=== PATIENT | male | born 1935 | race Caucasian/White ===

== ENCOUNTER → 2019-07-29 13:55 | Outpatient (ROUT) | payer MEDICARE, SELFPAY ==
[2019-07-29 14:02] LABS: Add Manual Diff / Slide Review NO; Basophils Absolute Auto 0 /uL (0-100); Basophils Percent Auto 0.4 % (0-2); Eosinophils Absolute Auto 100 /uL (0-450); Eosinophils Percent Auto 0.7 % (2-4); Hematocrit 42.1 % (41-53); Hemoglobin 14.4 g/dL (13.5-17.5); Lymphocytes Absolute Auto 2700 /uL (1100-4500); Lymphocytes Percent Auto 27.1 % (25-40); Mean Corpuscular HGB Conc 34.3 % (30-36); Mean Corpuscular Volume 93.5 fL (80-100); Monocytes Absolute Auto 800 /uL (0-900); Monocytes Percent Auto 8.1 % (3-14); Neutrophils Absolute Auto 6300 /uL (1500-7000); Neutrophils Percent Auto 63.7 % (50-75); Platelet Count 246 X10^3/uL (150-400); Red Blood Cell Count 4.51 X10^6/uL (4.5-5.9); Red Cell Distribution Width 13.3 % (11.6-14.8); White Blood Cell Count 9.8 X10^3/uL (4.5-11.0)
[2019-07-29 14:09] LABS: Aspartate Aminotransferase 36 IU/L (17-59); BUN Creatinine Ratio 25.7 (6-22); Blood Urea Nitrogen 18 mg/dL (9-20); Calcium 9.8 mg/dL (8.4-10.2); Carbon Dioxide 29 mmol/L (22-32); Chloride 104 mmol/L (98-107); Cholesterol 179 mg/dL (140-199); Estimated Glomerular Filt Rate > 60.0 mL/min (>60); Glucose 91 mg/dL (80-110); HDL Cholesterol 50 mg/dL (40-60); HEMOLYSIS < 15 (0-50); LDL Cholesterol Calculated 113 mg/dL (<100); Potassium 4.3 mmol/L (3.4-5.1); Sodium 142 mmol/L (137-145); Triglycerides 80 mg/dL (35-150)
== END ==
PROVIDERS: Family Provider Internal Medicine; PCP Internal Medicine; Visit Provider Internal Medicine
DX: E78.2 Mixed hyperlipidemia (principal); I48.91 Unspecified atrial fibrillation
CPT/HCPCS: 80048; 80061; 84450; 85025

== ENCOUNTER 2019-12-20 13:01 | Emergency (ER) | payer MEDICARE, SELFPAY ==
--- NOTE | 2019-12-20 13:06 | DI.RAD.S_ITS ---
PROCEDURE: XR HAND LT MIN 3V INDICATIONS: crush type trauma TECHNIQUE: 3 views of the hand(s) acquired. COMPARISON: None. FINDINGS: Bones: No acute fractures or dislocations. Background multilevel degenerative changes of the left hand involving the interphalangeal joints and carpometacarpal joints. Findings are most severe in the distal interphalangeal joints as well as the first carpometacarpal joint. Carpal bones are normally aligned. No suspicious bony lesions. Soft tissues: No suspicious soft tissue calcifications. IMPRESSION: Left hand without acute fracture or dislocation. Multilevel degenerative changes of the left hand. If there is persistent clinical concern for occult fracture given adequate mechanism of injury, consider repeat imaging in 10-14 days. Dictated by: Horace Smalls M.D. on 12/20/2019 at 13:31 Approved by: Horace Smalls M.D. on 12/20/2019 at 13:38
[2019-12-20 13:08] VITALS: BP 180/88; PULSE 52; RESP 16; TEMP 36.8; O2SAT 99; BMI 21.9
[2019-12-20 14:00] VITALS: BP 151/74; PULSE 52; RESP 17; O2SAT 100
[2019-12-20 15:00] VITALS: BP 153/71; PULSE 51; RESP 15; O2SAT 100
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
[2019-12-20] MEDS: IBUPROFEN 400 MG TABLET PO (15:53)
[2019-12-20] MEDS: ACETAMINOPHEN 325 MG TABLET PO (15:53)
[2019-12-20 15:59] VITALS: BP 165/79; PULSE 53; RESP 16; O2SAT 100
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
== END 2019-12-20 16:14 | disposition home or self-care (01) ==
PROVIDERS: Emergency Provider Emergency Medicine; Family Provider Internal Medicine; PCP Internal Medicine
DX: S60.222A Contusion of left hand, initial encounter (principal); W23.0XXA Caught, crushed, jammed, or pinched between moving objects, initial encounter
CPT/HCPCS: 73130; 99283; 99284

== ENCOUNTER → 2020-05-31 11:51 | Outpatient (CLI) | payer MEDICARE, SELFPAY ==
[2020-05-31 13:43] LABS: Alanine Aminotransferase 19 IU/L (<50); Aspartate Aminotransferase 31 IU/L (17-59)
[2020-05-31 14:02] LABS: Free T4, Direct Thyroxine 1.48 ng/dL (0.78-2.19)
[2020-05-31 14:16] LABS: Thyroid Stimulating Hormone 1.72 uIU/mL (0.47-4.68)
== END ==
PROVIDERS: Family Provider Internal Medicine; PCP Internal Medicine; Referring Provider Nurse Practitioner; Visit Provider Nurse Practitioner
DX: I48.19 Other persistent atrial fibrillation (principal)
CPT/HCPCS: 36415; 84439; 84443; 84450; 84460

== ENCOUNTER 2020-07-10 19:09 | Emergency (ER) | payer MEDICARE, SELFPAY ==
--- NOTE | 2020-07-10 19:14 | DI.CT.S_ITS ---
PROCEDURE: CT HEAD/BRAIN WO CON COMPARISON: Located Within [facility], CT, HEAD WITHOUT CONTRAST, 10/24/2016, 15:14. INDICATIONS: head inj on thinners FINDINGS: BRAIN: No hemorrhage, acute infarction, mass, or midline shift. Subcortical and periventricular white matter hypodensities are consistent with microvascular ischemic disease. BRAINSTEM: No hemorrhage, acute infarction, or mass. VENTRICLES: Ventricular size is normal. The subarachnoid cisterns and extra-axial CSF spaces are normal. EXTRAAXIAL: No extra-axial fluid or blood. ORBITS: The orbits and retrobulbar are soft tissues are normal. SOFT TISSUES: Normal. VASCULATURE: Intracranial vasculature has mild atherosclerotic calcifications. BONES: No fracture or focal osseous abnormality. SINUSES/MASTOIDS: The paranasal sinuses are well aerated. The mastoid air cells are well aerated. IMPRESSION: 1. No acute intracranial abnormality. 2. Atrophy and microvascular ischemic disease. Dictated by: Jordon Vargas M.D. on 07/10/2020 at 19:52 Approved by: Jordon Vargas M.D. on 07/10/2020 at 19:55
--- NOTE | 2020-07-10 19:15 | DI.CT.S_ITS ---
PROCEDURE: CT CERVICAL SPINE WO CON INDICATIONS: fall on thinners TECHNIQUE: Noncontrast 3 mm thick sections acquired from the skull base to the T4 level. Sagittal and coronal reformats were then constructed. For radiation dose reduction, the following was used: automated exposure control, adjustment of mA and/or kV according to patient size. COMPARISON: None. FINDINGS: Alignment is maintained. There is no evidence of traumatic fracture or spondylolisthesis. Lateral masses are intact. Dens appears normal. There are multilevel degenerative changes with disc disease and disc osteophytes. Disc disease is most severe at C4-5 through T1-2. The visualized soft tissues demonstrate no soft tissue hematoma, pathologic adenopathy or mass lesion. The lung apices demonstrate no focal contusion or pneumothorax. Limited evaluation of the brain parenchyma is normal. IMPRESSION: 1. No acute abnormality of the cervical spine. 2. Multilevel degenerative changes of the cervical spine. Dictated by: Jordon Vargas M.D. on 07/10/2020 at 19:55 Approved by: Jordon Vargas M.D. on 07/10/2020 at 19:58
[2020-07-10 19:19] VITALS: BP 187/82; PULSE 58; RESP 18; TEMP 36.6; O2SAT 99
--- NOTE | 2020-07-10 19:57 | ED.GENADULT ---
HPI - General Adult General Chief complaint: Trauma Stated complaint: Fall, Hit Head, Blood Thinners Time Seen by Provider: 07/10/20 19:14 Source: patient Mode of arrival: Ambulatory Limitations: no limitations History of Present Illness HPI narrative: 84-year-old male here for evaluation of injuries that he sustained when he tripped at home falling forward landing on his head. He is on anticoagulation. Modified trauma was called secondary to falling and hitting his head. He sustained a cut to his forehead. Reports no other injuries from the event. Related Data Allergies Allergy/AdvReac Type Severity Reaction Status Date / Time No Known Drug Allergies Allergy Verified 12/20/19 13:08 Review of Systems Constitutional Constitutional: Denies headache(s) Eyes Eyes: Denies change in vision ENT Ears, Nose, Mouth, and Throat: Denies vertigo, Denies dizziness, Denies facial pain and Denies headache(s) Cardiovascular Cardiovascular: Denies chest pain and Denies dyspnea Respiratory Respiratory: Denies dyspnea Gastrointestinal Gastrointestinal: Denies abdominal pain, Denies nausea and Denies vomiting Musculoskeletal Musculoskeletal: Denies arthralgias and Denies myalgias Integumentary/Breasts Comments: Cut to forehead Neurologic Neurologic: Denies vertigo, Denies dizziness and Denies headache(s) Hematologic/Lymphatic Comments: On anticoagulation Allergic/Immunologic Allergic/Immunologic: Denies urticaria Patient History Medical History Minor head injury without loss of consciousness Social History lives independently: Yes Exam Initial Vital Signs Initial Vital Signs: Vital Signs Temperature 97.8 F 07/10/20 19:19 Pulse Rate 58 L 07/10/20 19:19 Respiratory Rate 18 07/10/20 19:19 Blood Pressure 187/82 H 07/10/20 19:19 Pulse Oximetry 99 07/10/20 19:19 Const General: cooperative and comfortable Limitations: mental status not altered HENMT Head: laceration Resp Effort & Inspection: normal respiratory effort Skin Other: Patient with a 3 cm irregular laceration to the left forehead Neuro General: patient alert, patient awake and patient oriented x3 Cognition: normal cognition Speech: speech normal Extrem General: normal to inspection and capillary refill normal Psych Appearance: grossly normal and well kempt Procedures Laceration Repair Laceration 1: Site: other (Forehead) Side (If applicable): left Size (cm): 3 Description: irregular Depth: simple, single layer Local Anesthetic: lidocaine 1% and with epi Amount of anesthesia used (mL): 5 Pre-repair: irrigated extensively and deep structures intact Skin layer closed with: chace (Six) Scores GCS [place] coma scale eye opening: Spontaneous [place] coma scale verbal response: Orientated [place] coma scale motor response: Obey commands Karolyn coma scale total score: 15 Course Orders Ordered: ED Orders 07/10/20 19:14 CT head/brain wo con Stat 07/10/20 19:15 CT cervical spine wo con Stat Discontinued Medications Lidocaine/Epinephrine (Lidocaine 1% W/Epi) 1 ml SUBCUT NOW ONE Stop: 07/10/20 19:58 Last Admin: 07/10/20 20:26 Dose: 1 ml Documented by: NICK Vital Signs Vital signs: Vital Signs - 8 hr 07/10/20 19:19 07/10/20 20:35 Temperature 97.8 F Pulse Rate 58 L 58 L Respiratory Rate 18 16 Blood Pressure 187/82 H 151/72 H Pulse Oximetry 99 100 Medical Decision Making Imaging Data CT scan - head: Radiologist's Impression: [address] [id number] Scan ReportSigned Patient: Efrain Orozco [facility]#: [id number]: [id number]:[id number]/Sex: 84 / MDate of Service: 07/10/20Loc: EDAccession Number: [id number] Procedure: CT head/brain wo con Ordering Provider: Sb Woodall D.O. PROCEDURE: CT HEAD/BRAIN WO CON COMPARISON: [facility], CT, HEAD WITHOUT CONTRAST, 10/24/2016, 15:14. INDICATIONS: head inj on thinners FINDINGS: BRAIN: No hemorrhage, acute infarction, mass, or midline shift. Subcortical and periventricular white matter hypodensities are consistent with microvascular ischemic disease. BRAINSTEM: No hemorrhage, acute infarction, or mass. VENTRICLES: Ventricular size is normal. The subarachnoid cisterns and extra-axial CSF spaces are normal. EXTRAAXIAL: No extra-axial fluid or blood. ORBITS: The orbits and retrobulbar are soft tissues are normal. SOFT TISSUES: Normal. VASCULATURE: Intracranial vasculature has mild atherosclerotic calcifications. BONES: No fracture or focal osseous abnormality. SINUSES/MASTOIDS: The paranasal sinuses are well aerated. The mastoid air cells are well aerated. IMPRESSION: 1. No acute intracranial abnormality. 2. Atrophy and microvascular ischemic disease. Dictated by: Jordon Vargas M.D. on 07/10/2020 at 19:52 Approved by: Jordon Vargas M.D. on 07/10/2020 at 19:55 CT - cervical spine: Radiologist's Impression: [address] [id number] Scan ReportSigned Patient: Efrain Orozco IMR#: [id number]: [id number]:[id number]/Sex: 84 / MDate of Service: 07/10/20Loc: EDAccession Number: [id number] Procedure: CT cervical spine wo con Ordering Provider: Sb Woodall D.O. PROCEDURE: CT CERVICAL SPINE WO CON INDICATIONS: fall on thinners TECHNIQUE: Noncontrast 3 mm thick sections acquired from the skull base to the T4 level. Sagittal and coronal reformats were then constructed. For radiation dose reduction, the following was used: automated exposure control, adjustment of mA and/or kV according to patient size. COMPARISON: None. FINDINGS: Alignment is maintained. There is no evidence of traumatic fracture or spondylolisthesis. Lateral masses are intact. Dens appears normal. There are multilevel degenerative changes with disc disease and disc osteophytes. Disc disease is most severe at C4-5 through T1-2. The visualized soft tissues demonstrate no soft tissue hematoma, pathologic adenopathy or mass lesion. The lung apices demonstrate no focal contusion or pneumothorax. Limited evaluation of the brain parenchyma is normal. IMPRESSION: 1. No acute abnormality of the cervical spine. 2. Multilevel degenerative changes of the cervical spine. Dictated by: Jordon Vargas M.D. on 07/10/2020 at 19:55 Approved by: Jordon Vargas M.D. on 07/10/2020 at 19:58 [facility] Narrative Medical decision making narrative: Cervical collar was placed upon arrival. His head CT and neck CT to show no signs of fractures. The for at laceration was closed with chace as described above. Patient was given the option for stitches however he opted for the chace. He reports no other injuries from the event. Has full range of motion of all 4 extremities. He is given return precautions and follow-up instructions. He expressed understanding and agreement. Discharge Plan Departure Patient Disposition: Home Clinical Impression: Laceration of head, Fall, CHI (closed head injury) Instructions: DI for Laceration Repair -- [place], DI for Closed Head Injury Activity Restrictions/Additional Instructions: The chace do need to be removed in 7 days. Your primary provider can do this. After 24 hours you can shower like normal. Keep the bandage over the area unchanged as needed like we discussed. Return to the emergency department for any new or worsening symptoms Referrals: Vega Song MD [Primary Care Provider] -
[2020-07-10] MEDS: LIDOCAINE 1% W/EPI 1 ML SUBCUT (20:26)
--- NOTE | 2020-07-10 20:32 | PC.NURSE ---
C-Spine cleared by Dr. Woodall at 2030
[2020-07-10 20:35] VITALS: BP 151/72; PULSE 58; RESP 16; O2SAT 100
== END 2020-07-10 20:35 | disposition home or self-care (01) ==
PROVIDERS: Emergency Provider Emergency Medicine; Family Provider Internal Medicine; PCP Internal Medicine
DX: S01.81XA Laceration without foreign body of other part of head, initial encounter (principal); S09.90XA Unspecified injury of head, initial encounter; Z79.01 Long term (current) use of anticoagulants; W19.XXXA Unspecified fall, initial encounter
CPT/HCPCS: 12013; 70450; 72125; 99284

== ENCOUNTER → 2021-01-04 08:43 | Outpatient (CLI) | payer MEDICARE, SELFPAY ==
[2021-01-04 09:31] LABS: COVID19 -Nasal RAPID Negative (Negative)
== END ==
PROVIDERS: Family Provider Internal Medicine; PCP Internal Medicine; Referring Provider Internal Medicine; Visit Provider Internal Medicine
DX: Z20.822 Contact with and (suspected) exposure to COVID-19 (principal)
CPT/HCPCS: 87635; C9803

== ENCOUNTER → 2021-01-04 08:45 | Outpatient (CLI) | payer MEDICARE, SELFPAY ==
[2021-01-04 11:00] LABS: Alanine Aminotransferase 11 IU/L (<50); Albumin 3.7 g/dL (3.5-5.0); Albumin Globulin Ratio 1.3 (1.0-2.8); Alkaline Phosphatase 91 U/L (38-126); Aspartate Aminotransferase 31 IU/L (17-59); BUN Creatinine Ratio 27.5 (6-22); Bilirubin Total 0.9 mg/dL (0.2-1.3); Blood Urea Nitrogen 19 mg/dL (9-20); Calcium 9.2 mg/dL (8.4-10.2); Carbon Dioxide 29 mmol/L (22-32); Chloride 106 mmol/L (98-107); Estimated Glomerular Filt Rate > 60.0 mL/min (>60); Globulin 2.8 g/dL (1.7-4.1); Glucose 92 mg/dL (80-110); HEMOLYSIS < 15 (0-50); Potassium 4.6 mmol/L (3.4-5.1); Sodium 140 mmol/L (137-145); Total Protein 6.5 g/dL (6.3-8.2)
[2021-01-04 11:28] LABS: TSH w/ Reflex to FT4 1.66 uIU/mL (0.47-4.68)
--- NOTE | 2021-01-10 08:57 | PM.PFT.1 ---
Pulmonary Function Test Referral & Results Date Patient Seen: 01/04/21 Requesting provider: Altagracia Brown Results: The spirometry demonstrates an FVC of 4.40 L which is 100% of predicted. The FEV1 was measured at 3.27 L which is 105% of predicted. The FEV1/FVC ratio was 74 which is 104% of predicted. Following the administration of bronchodilator there was a 49% improvement in FEF 25-75%. Lung volumes show an SVC of 4.71 L which is 98% of predicted. The diffusing capacity was measured at 19.31 which is 53% of predicted. No hemoglobin value was provided, so no correction for potential anemia could be made, if appropriate. The maximum voluntary ventilation was normal Interpretation: This study demonstrates normal spirometry although after bronchodilator there is some evidence of improvement in small airway flow. Shape of flow volume loop does not necessarily support any element of obstructive lung disease however. In the end, I would consider spirometry to be normal There is a moderate reduction diffusing capacity suggesting disease at the capillary alveolar level
== END ==
PROVIDERS: Family Provider Internal Medicine; PCP Internal Medicine; Referring Provider Nurse Practitioner; Visit Provider Nurse Practitioner
DX: Z79.899 Other long term (current) drug therapy (principal); I48.19 Other persistent atrial fibrillation; Z20.822 Contact with and (suspected) exposure to COVID-19
CPT/HCPCS: 36415; 80053; 80076; 84443; 87635; 94060; 94726; 94729; C9803

== ENCOUNTER → 2021-05-19 10:10 | Outpatient (CLI) | payer MEDICARE, SELFPAY ==
--- NOTE | 2021-05-19 | DI.RAD.S_ITS ---
PROCEDURE: XR CHEST 2V INDICATIONS: Paroxysmal atrial fibrillation. TECHNIQUE: 2 views of the chest were acquired. COMPARISON: None. FINDINGS: Surgical changes and devices: None. Lungs and pleura: Lungs are clear. No pleural effusions or pneumothorax. Mediastinum: The cardiac contours are within normal limits. The aorta demonstrates calcification and tortuosity. Bones and chest wall: Age-appropriate bony degenerative changes are seen. No suspicious bony abnormalities. Soft tissues appear unremarkable. IMPRESSION: No acute cardiopulmonary process is seen. Prominent, tortuous aorta noted. Dictated by: Stu Ahuja M.D. on 05/19/2021 at 9:41 Approved by: Stu Ahuja M.D. on 05/19/2021 at 9:42
== END ==
PROVIDERS: Family Provider Internal Medicine; PCP Internal Medicine; Referring Provider Internal Medicine; Visit Provider Internal Medicine
DX: I48.0 Paroxysmal atrial fibrillation (principal); Q25.46 Tortuous aortic arch
CPT/HCPCS: 71046

== ENCOUNTER 2021-11-15 11:00 | Outpatient (RCR) | payer MEDICARE, SELFPAY ==
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
--- NOTE | 2021-10-26 16:25 | PT.OPPOC ---
Physical, Occupational & Speech Therapy At [facility] Current Diagnoses Parkinson's disease (10/26/21) Visit Care Team Role Provider Type Vega Song MD Attending Provider Physician Family Provider Primary Care Provider Referring Provider Specialty: Internal Medicine Address: [address] [place] [address], [phone] Email: [email or web address] Plan Of Care PT-OP-T Assessment and Plan Start: 10/22/21 07:55 Freq: Status: Active Protocol: Document 10/26/21 10:30 AMB (Rec: 10/26/21 13:47 AMB [id number]) Physical Therapy Assessment Rehab Potential Rehabilitation Potential Good Evaluation Complexity Number of Personal Factors/Comorbidities 3 or More Number of Body Systems Impaired 4 or More Clinical Presentation at Evaluation Stable Impairments Impairments Activity Tolerance,Functional Activities,Gait,Posture, Strength Goals Three Impairment Gait Short Term Goal (STG) Scot will improve his 6MWT to 1 , 300ft. STG Duration 2 weeks Two Impairment Fine motor Short Term Goal (STG) Scot will write a card to his with good legibility. STG Duration 2 weeks Overhead Irrigator Goal (LTG) Scot will use exercises and rest breaks so that he can use a fork successfully at dinner . LTG Duration 5 weeks One Impairment Balance Short Term Goal (STG) Scot will improve his DGI score to at least 20/24. STG Duration 2 weeks Prison Goal (LTG) Scot will take a large step forward without UE support without LOB to show improved dynamic balance. LTG Duration 4 weeks Assessment Summary Assessment Scot attends PT with a history of falls and a love of exercise. He has self limited his writing/typing and has difficulty with eating with utensils primarily due to R UE tremor. His does endorse that he has memory concerns. While his 6MWT was within norms for men his age, he had difficulty navigating a repetitive course. He denies any difficulty with higher level transfers, but he did score with a high fall risk with his DGI. Scot will benefit from PT to improve decrease his fall risk, improve fine motor skills, and improve his gait quality. Physical Therapy Plan Frequency and Duration Frequency of Treatment 4x/Week Duration of Treatment 5 weeks Plan of Care Start Date 10/26/21 Plan of Care End Date 11/30/21 Therapeutic Interventions Therapeutic Interventions Balance Training,Gait Training ,Home Exercise Program, Neuromuscular Re-education, Self-Care/Home Management, Therapeutic Activities, Therapeutic Exercises Next Visit Focus/Plan Next Note Type Treatment Note Next Visit Plan progress with adapted LSVT Big Plan of Care Dates Plan of Care Start Date 10/26/21 Plan of Care End Date 11/30/21 Electronically Signed by: Perri Gamboa, PT 10/26/21 [id number] Please Sign and Return: I have reviewed this Plan of Care and certify that the skilled therapy services above are required to meet the patient?s needs. Physician Signature Date Printed Name and Credentials Clinical Instructor Signature Printed Name and Credentials
--- NOTE | 2021-10-29 15:10 | PT.OTN ---
Current Diagnoses Parkinson's disease (10/29/21) Physical Therapy Treatment Note PT-OP-A Visit Information Start: 10/22/21 07:55 Freq: Status: Active Protocol: Document 10/29/21 14:54 MA (Rec: 10/29/21 15:10 MA [id number]) Out-Patient Physical Therapy Visit Information Visit Information Visit Type Treatment Note Visit Start Time 11:00 Visit Stop Time 12:00 Total Visit Minutes 60 Visit Number 2 Number of GLOBAL SECURITY ARCHITECT Visits 1 PT-OP-B Current Condition Start: 10/22/21 07:55 Freq: Status: Active Protocol: Document 10/26/21 09:45 AMB (Rec: 10/26/21 10:10 AMB [id number]) Current Condition History of Current Condition Onset Date 1 year ago Current Complaints Falls, tremor History of Current Condition Scot attends physical therapy with his Sonya. It sounds like he was diagnosed with Parkinsons about a year ago. noticed he wasn't swinging his arms as much, pt thought he had resting tremor in the R UE. Every day he walks 1.2 miles without AD. Also does lunges- with UE support, sit to stands, sit ups, push ups, stationary bike , rowing machine, weights. Does have a history of falls, better now that he's on sinemet. /family don't let him drive or go on bike rides anymore and he is sad about this. No stairs in the house. Does report lightheaded history when walking but hasn't had that happen in a while- reports 2 falls in last 3 months. Treatment Goals Patient/Caregiver Goals Exercise, improve handwriting Prior Functional Status Baseline Function- ADL's Independent Baseline Function- Mobility Independent Current Functional Impairments (Reported) Functional Limitations- ADL's does all housekeeping/ gardening, assists him with shower Personal Factors Other Personal Factors That May Effect Hx R TKA, afib Therapy/Recovery PT-OP-C Subjective Start: 10/22/21 07:55 Freq: Status: Active Protocol: Document 10/29/21 14:54 MA (Rec: 10/29/21 15:10 MA [id number]) OP-PT Subjective Patient Comments Patient Comments Pt arrives with who will attend sessions to help pt with LSVT Big program at home. Pt states he works out daily and does stair stepper 3x/wk PT-OP-D Balance Start: 10/22/21 07:55 Freq: Status: Active Protocol: Document 10/26/21 09:45 AMB (Rec: 10/26/21 13:33 AMB [id number]) Balance Tests mCTSIB mCTSIB Position 1 30 sec mCTSIB Position 2 10 sec increased ankle PT-OP-E Functional Tests Start: 10/22/21 07:55 Freq: Status: Active Protocol: Document 10/26/21 09:45 AMB (Rec: 10/26/21 13:33 AMB [id number]) Functional Tests 6 Minute Walk Test Distance 1219 Device Used none Comments difficulty with pathfinding 10 Meter Walk Test Distance 9 seconds Device Used none Dynamic Gait Index (DGI) Score 14 DGI Impairment Rating 40 to <60% Impaired (Score 10- 14) Five Times Sit to Stand Test Score 19 PT-OP-G Mobility & Gait Start: 10/22/21 07:55 Freq: Status: Active Protocol: Document 10/26/21 09:45 AMB (Rec: 10/26/21 13:33 AMB [id number]) OP Gait Assessment Comments Gait Comments Scot ambulates with moderate armswing but no spinal rotation and R LE externally rotated PT-OP-J Posture/Palpation/Skin Start: 10/22/21 07:55 Freq: Status: Active Protocol: Document 10/26/21 09:45 AMB (Rec: 10/26/21 13:33 AMB [id number]) Posture Evaluation Comments Posture Comments Increased thoracic kyphosis, forward shoulders, forward head PT-OP-Q Treatments Start: 10/22/21 07:55 Freq: Status: Active Protocol: Document 10/29/21 14:54 MA (Rec: 10/29/21 15:10 MA [id number]) Gait Training Gait Activity Hurdles Device Used gait belt Level of Assistance CGA-Min A in //bars Surface level Distance/Duration 3x 6 hurdles fwd, 2x laterally Treatment Focus increasing step height BIG Device Used none Level of Assistance SBA Surface level Distance/Duration 2x 100 ft Treatment Focus BIG walking, increasing arm swings and step height/length Comments decreased shd ext on L Neuro Re-Education Treatment Other Activities Floor to ceiling Details w/ added finger flicks Reps/Duration x10 Hasi-as-uciu Details w/ added finger flicks Reps/Duration x10 ea fwd step Details modified Reps/Duration x10 ea sideways step Details modified with std height chair Reps/Duration 10x ea backwards step Details modified with std height chair Reps/Duration x10 ea fwd rock/reach Reps/Duration x10 ea Comments pt holding chair with one hand , PT CGA to Min A for LOB Sideways rock/reach Details modified Reps/Duration x10 ea Comments Min A required for turning LE during movement Sit<>stand Details std height chair Reps/Duration x10 Comments cues to reach arms big upon standing Self-Care/Home Management Treatment Education Caregiver Education Requested caregiver help pt complete functional task form. practices exercises with PT and pt this session Other Education Dispensed LSVT modified BIG exercises packet, exercise log , and functional task form. Pt to bring functional task form next session. Educated pt on purpose of BIG program, how to safely perform exercises at home to avoid falls, and discussed posture. PT-OP-T Assessment and Plan Start: 10/22/21 07:55 Freq: Status: Active Protocol: Document 10/29/21 14:54 MA (Rec: 10/29/21 15:10 MA [id number]) Physical Therapy Assessment Goals Three Impairment Gait Short Term Goal (STG) Scot will improve his 6MWT to 1 , 300ft. STG Duration 2 weeks Two Impairment Fine motor Short Term Goal (STG) Scot will write a card to his with good legibility. STG Duration 2 weeks Longterm Goal (LTG) Scot will use exercises and rest breaks so that he can use a fork successfully at dinner . LTG Duration 5 weeks One Impairment Balance Short Term Goal (STG) Scot will improve his DGI score to at least 20/24. STG Duration 2 weeks Social Worker Health Services Goal (LTG) Scot will take a large step forward without UE support without LOB to show improved dynamic balance. LTG Duration 4 weeks Assessment Summary Assessment Scot is able to complete modified BIG exercises using standard height chair for balance during all standing exercises. Pt does occassionally require Min A for posterior LOB when stepping legs together during all stepping exercises. Pt gets frustrated with coordinating UE and LE together during movements. Encouraged pt to slow down and remember to focus on increasing amplitude vs speed. Pt's attends session and will help monitor pt for safety at home. Pt and will fill out functional task recording form and bring to tomorrow's session. Physical Therapy Plan Frequency and Duration Frequency of Treatment 4x/Week Duration of Treatment 5 weeks Plan of Care Start Date 10/26/21 Plan of Care End Date 11/30/21 Therapeutic Interventions Therapeutic Interventions Balance Training,Gait Training ,Home Exercise Program, Neuromuscular Re-education, Self-Care/Home Management, Therapeutic Activities, Therapeutic Exercises Next Visit Focus/Plan Next Note Type Treatment Note Next Visit Plan Progress with adapted LSVT Big (recommend gait belt for all standing exercises), continue working on gait and balance. Review pt's functional task form.
--- NOTE | 2021-10-30 15:04 | PT.OTN ---
Current Diagnoses Parkinson's disease (10/30/21) Physical Therapy Treatment Note PT-OP-A Visit Information Start: 10/22/21 07:55 Freq: Status: Active Protocol: Document 10/30/21 11:00 AMB (Rec: 10/30/21 13:01 AMB [id number]) Out-Patient Physical Therapy Visit Information Visit Information Visit Type Treatment Note Visit Start Time 11:00 Visit Stop Time 12:00 Total Visit Minutes 60 Visit Number 3 Number of RAYON WINDER Visits 0 PT-OP-B Current Condition Start: 10/22/21 07:55 Freq: Status: Active Protocol: Document 10/26/21 09:45 AMB (Rec: 10/26/21 10:10 AMB [id number]) Current Condition History of Current Condition Onset Date 1 year ago Current Complaints Falls, tremor History of Current Condition Scot attends physical therapy with his Sonya. It sounds like he was diagnosed with Parkinsons about a year ago. noticed he wasn't swinging his arms as much, pt thought he had resting tremor in the R UE. Every day he walks 1.2 miles without AD. Also does lunges- with UE support, sit to stands, sit ups, push ups, stationary bike , rowing machine, weights. Does have a history of falls, better now that he's on sinemet. /family don't let him drive or go on bike rides anymore and he is sad about this. No stairs in the house. Does report lightheaded history when walking but hasn't had that happen in a while- reports 2 falls in last 3 months. Treatment Goals Patient/Caregiver Goals Exercise, improve handwriting Prior Functional Status Baseline Function- ADL's Independent Baseline Function- Mobility Independent Current Functional Impairments (Reported) Functional Limitations- ADL's does all housekeeping/ gardening, assists him with shower Personal Factors Other Personal Factors That May Effect Hx R TKA, afib Therapy/Recovery PT-OP-C Subjective Start: 10/22/21 07:55 Freq: Status: Active Protocol: Document 10/30/21 11:00 AMB (Rec: 10/30/21 13:01 AMB [id number]) OP-PT Subjective Patient Comments Patient Comments Sonya states Scot worked on his BIG exercises this morning , she was in the kitchen and he was in the dining room holding onto a chair, so she could see him but she was not within arms reach. PT-OP-D Balance Start: 10/22/21 07:55 Freq: Status: Active Protocol: Document 10/26/21 09:45 AMB (Rec: 10/26/21 13:33 AMB [id number]) Balance Tests mCTSIB mCTSIB Position 1 30 sec mCTSIB Position 2 10 sec increased ankle PT-OP-E Functional Tests Start: 10/22/21 07:55 Freq: Status: Active Protocol: Document 10/26/21 09:45 AMB (Rec: 10/26/21 13:33 AMB [id number]) Functional Tests 6 Minute Walk Test Distance 1219 Device Used none Comments difficulty with pathfinding 10 Meter Walk Test Distance 9 seconds Device Used none Dynamic Gait Index (DGI) Score 14 DGI Impairment Rating 40 to <60% Impaired (Score 10- 14) Five Times Sit to Stand Test Score 19 PT-OP-G Mobility & Gait Start: 10/22/21 07:55 Freq: Status: Active Protocol: Document 10/26/21 09:45 AMB (Rec: 10/26/21 13:33 AMB [id number]) OP Gait Assessment Comments Gait Comments Scot ambulates with moderate armswing but no spinal rotation and R LE externally rotated PT-OP-J Posture/Palpation/Skin Start: 10/22/21 07:55 Freq: Status: Active Protocol: Document 10/26/21 09:45 AMB (Rec: 10/26/21 13:33 AMB [id number]) Posture Evaluation Comments Posture Comments Increased thoracic kyphosis, forward shoulders, forward head PT-OP-Q Treatments Start: 10/22/21 07:55 Freq: Status: Active Protocol: Document 10/30/21 11:00 AMB (Rec: 10/30/21 15:03 AMB [id number]) Therapeutic Activity Therapeutic Activity floor transfer Comments SBA- pt demonstrated how he performs at home to get down to do pushups-- thigh walks to avoid kneeling on painful knee Gait Training Gait Activity BIG Device Used none Level of Assistance SBA Surface level Distance/Duration 2x 100 ft Treatment Focus BIG walking, increasing arm swings and step height/length Comments decreased shd ext on L Neuro Re-Education Treatment Other Activities Floor to ceiling Details w/ added finger flicks Reps/Duration x10 [id number] Details w/ added finger flicks Reps/Duration x10 ea fwd step Details modified with chair Reps/Duration x10 ea sideways step Details modified with std height chair Reps/Duration 10x ea Comments cues to rotate neck backwards step Details modified with std height chair Reps/Duration x10 ea Comments CGA for backwards step fwd rock/reach Reps/Duration x10 ea Comments pt holding chair with one hand , PT CGA Sideways rock/reach Details modified Reps/Duration x10 ea Comments heavy cues for weight shift, cervical movement Sit<>stand Details std height chair (with blue foam) Reps/Duration x10 Comments cues to reach arms big upon standing PT-OP-T Assessment and Plan Start: 10/22/21 07:55 Freq: Status: Active Protocol: Document 10/30/21 11:00 AMB (Rec: 10/30/21 15:03 AMB [id number]) Physical Therapy Assessment Goals Three Impairment Gait Short Term Goal (STG) Scot will improve his 6MWT to 1 , 300ft. STG Duration 2 weeks Two Impairment Fine motor Short Term Goal (STG) Scot will write a card to his with good legibility. STG Duration 2 weeks Pododermatologist Goal (LTG) Scot will use exercises and rest breaks so that he can use a fork successfully at dinner . LTG Duration 5 weeks One Impairment Balance Short Term Goal (STG) Scot will improve his DGI score to at least 20/24. STG Duration 2 weeks Fpc Goal (LTG) Scot will take a large step forward without UE support without LOB to show improved dynamic balance. LTG Duration 4 weeks Assessment Summary Assessment Scot did better today with exercises, although continues to need cues for correct form, using UE and LE together. Did continue to use chair for balance with exercises, could consider rail/counter top if he needs more assist. Discussed having more steady UE support at home since is not really guarding him. Physical Therapy Plan Frequency and Duration Frequency of Treatment 4x/Week Duration of Treatment 5 weeks Plan of Care Start Date 10/26/21 Plan of Care End Date 11/30/21 Therapeutic Interventions Therapeutic Interventions Balance Training,Gait Training ,Home Exercise Program, Neuromuscular Re-education, Self-Care/Home Management, Therapeutic Activities, Therapeutic Exercises Next Visit Focus/Plan Next Note Type Treatment Note Next Visit Plan Progress with adapted LSVT Big (recommend gait belt for all standing exercises), continue working on gait and balance, can add in fine motor activities as time allows ( buttons, handwriting, handling a fork)
--- NOTE | 2021-10-31 12:50 | PT.OTN ---
Current Diagnoses Parkinson's disease (10/31/21) Physical Therapy Treatment Note PT-OP-A Visit Information Start: 10/22/21 07:55 Freq: Status: Active Protocol: Document 10/31/21 11:44 MA (Rec: 10/31/21 12:00 MA [id number]) Out-Patient Physical Therapy Visit Information Visit Information Visit Type Treatment Note Visit Start Time 11:00 Visit Stop Time 11:55 Total Visit Minutes 55 Visit Number 4 Number of SPEECH THERAPIST EARLY INTERVENTION Visits 1 PT-OP-B Current Condition Start: 10/22/21 07:55 Freq: Status: Active Protocol: Document 10/26/21 09:45 AMB (Rec: 10/26/21 10:10 AMB [id number]) Current Condition History of Current Condition Onset Date 1 year ago Current Complaints Falls, tremor History of Current Condition Scot attends physical therapy with his Sonya. It sounds like he was diagnosed with Parkinsons about a year ago. noticed he wasn't swinging his arms as much, pt thought he had resting tremor in the R UE. Every day he walks 1.2 miles without AD. Also does lunges- with UE support, sit to stands, sit ups, push ups, stationary bike , rowing machine, weights. Does have a history of falls, better now that he's on sinemet. /family don't let him drive or go on bike rides anymore and he is sad about this. No stairs in the house. Does report lightheaded history when walking but hasn't had that happen in a while- reports 2 falls in last 3 months. Treatment Goals Patient/Caregiver Goals Exercise, improve handwriting Prior Functional Status Baseline Function- ADL's Independent Baseline Function- Mobility Independent Current Functional Impairments (Reported) Functional Limitations- ADL's does all housekeeping/ gardening, assists him with shower Personal Factors Other Personal Factors That May Effect Hx R TKA, afib Therapy/Recovery PT-OP-C Subjective Start: 10/22/21 07:55 Freq: Status: Active Protocol: Document 10/31/21 11:44 MA (Rec: 10/31/21 12:00 MA [id number]) OP-PT Subjective Patient Comments Patient Comments Sonya states they tried the exercises at the kitchen counter today whcih was a little more stable than the chair. PT-OP-D Balance Start: 10/22/21 07:55 Freq: Status: Active Protocol: Document 10/26/21 09:45 AMB (Rec: 10/26/21 13:33 AMB [id number]) Balance Tests mCTSIB mCTSIB Position 1 30 sec mCTSIB Position 2 10 sec increased ankle PT-OP-E Functional Tests Start: 10/22/21 07:55 Freq: Status: Active Protocol: Document 10/26/21 09:45 AMB (Rec: 10/26/21 13:33 AMB [id number]) Functional Tests 6 Minute Walk Test Distance 1219 Device Used none Comments difficulty with pathfinding 10 Meter Walk Test Distance 9 seconds Device Used none Dynamic Gait Index (DGI) Score 14 DGI Impairment Rating 40 to <60% Impaired (Score 10- 14) Five Times Sit to Stand Test Score 19 PT-OP-G Mobility & Gait Start: 10/22/21 07:55 Freq: Status: Active Protocol: Document 10/26/21 09:45 AMB (Rec: 10/26/21 13:33 AMB [id number]) OP Gait Assessment Comments Gait Comments Scot ambulates with moderate armswing but no spinal rotation and R LE externally rotated PT-OP-J Posture/Palpation/Skin Start: 10/22/21 07:55 Freq: Status: Active Protocol: Document 10/26/21 09:45 AMB (Rec: 10/26/21 13:33 AMB [id number]) Posture Evaluation Comments Posture Comments Increased thoracic kyphosis, forward shoulders, forward head PT-OP-Q Treatments Start: 10/22/21 07:55 Freq: Status: Active Protocol: Document 10/31/21 11:44 MA (Rec: 10/31/21 12:00 MA [id number]) Therapeutic Activity Therapeutic Activity Utensils Name fork Reps/Minutes 5' Comments scooping up small dinosaurs for hand dexarity Handwriting Reps/Minutes 5' Comments with breaks for finger flicks and cues to move UE as Scot writes Gait Training Gait Activity BIG Description curbs, gravel, small inclines, stairs Device Used none Level of Assistance SBA Surface uneven Distance/Duration 5' Treatment Focus BIG walking, increasing arm swings and step height/length Comments decreased shd ext on L Neuro Re-Education Treatment Other Activities Floor to ceiling Details w/ added finger flicks Reps/Duration x10 [id number]-ft-tzny Details w/ added finger flicks Reps/Duration x10 ea fwd step Details modified with chair Reps/Duration x10 ea sideways step Details modified with std height chair Reps/Duration 10x ea Comments cues to rotate neck backwards step Details modified with std height chair Reps/Duration x10 ea Comments CGA for backwards step fwd rock/reach Reps/Duration x10 ea Comments pt holding chair with one hand , PT CGA Sideways rock/reach Details modified Reps/Duration x10 ea Comments heavy cues for weight shift, cervical movement Sit<>stand Details std height chair (with blue foam) Reps/Duration x10 Comments cues to reach arms big upon standing PT-OP-T Assessment and Plan Start: 10/22/21 07:55 Freq: Status: Active Protocol: Document 10/31/21 11:44 MA (Rec: 10/31/21 12:00 MA [id number]) Physical Therapy Assessment Goals Three Impairment Gait Short Term Goal (STG) Scot will improve his 6MWT to 1 , 300ft. STG Duration 2 weeks Two Impairment Fine motor Short Term Goal (STG) Scot will write a card to his with good legibility. STG Duration 2 weeks Precipitator Operator Goal (LTG) Scot will use exercises and rest breaks so that he can use a fork successfully at dinner . LTG Duration 5 weeks One Impairment Balance Short Term Goal (STG) Scot will improve his DGI score to at least 20/24. STG Duration 2 weeks [facility] Goal (LTG) Scot will take a large step forward without UE support without LOB to show improved dynamic balance. LTG Duration 4 weeks Assessment Summary Assessment Scot requires heavy cues for increasing step height during BIG exercises and outdoor walking or will move with decreased hip and knee flexion . He is able to walking outside on uneven surfaces and up/down stairs CGA with single rail. Attempted using fork this session with pt scooping up small items in a bowl. Pt shows increased difficulty if holding fork toward end vs trying to hold close to base of fork. has been debating trying weighted silverware for improved coordination with pt' s increasing tremors. PT will check if clinic has weighted silverware to try next session . Pt shows some frustration with handwriting activity and does not slow down or take breaks when cued and is unable to keep his handwriting on lined paper. Physical Therapy Plan Frequency and Duration Frequency of Treatment 4x/Week Duration of Treatment 5 weeks Plan of Care Start Date 10/26/21 Plan of Care End Date 11/30/21 Therapeutic Interventions Therapeutic Interventions Balance Training,Gait Training ,Home Exercise Program, Neuromuscular Re-education, Self-Care/Home Management, Therapeutic Activities, Therapeutic Exercises Next Visit Focus/Plan Next Note Type Treatment Note Next Visit Plan Progress with adapted LSVT Big (recommend gait belt for all standing exercises), continue working on gait and balance, can add in fine motor activities as time allows ( buttons, handwriting, handling a fork)
--- NOTE | 2021-11-01 14:21 | PT.OTN ---
Current Diagnoses Parkinson's disease (11/01/21) Physical Therapy Treatment Note PT-OP-A Visit Information Start: 10/22/21 07:55 Freq: Status: Active Protocol: Document 11/01/21 11:00 AMB (Rec: 11/01/21 13:02 AMB [id number]) Out-Patient Physical Therapy Visit Information Visit Information Visit Type Treatment Note Visit Start Time 11:00 Visit Stop Time 11:55 Total Visit Minutes 60 Visit Number 5 Number of DIRECTOR OF RETAIL Visits 0 PT-OP-B Current Condition Start: 10/22/21 07:55 Freq: Status: Active Protocol: Document 10/26/21 09:45 AMB (Rec: 10/26/21 10:10 AMB [id number]) Current Condition History of Current Condition Onset Date 1 year ago Current Complaints Falls, tremor History of Current Condition Scot attends physical therapy with his Sonya. It sounds like he was diagnosed with Parkinsons about a year ago. noticed he wasn't swinging his arms as much, pt thought he had resting tremor in the R UE. Every day he walks 1.2 miles without AD. Also does lunges- with UE support, sit to stands, sit ups, push ups, stationary bike , rowing machine, weights. Does have a history of falls, better now that he's on sinemet. /family don't let him drive or go on bike rides anymore and he is sad about this. No stairs in the house. Does report lightheaded history when walking but hasn't had that happen in a while- reports 2 falls in last 3 months. Treatment Goals Patient/Caregiver Goals Exercise, improve handwriting Prior Functional Status Baseline Function- ADL's Independent Baseline Function- Mobility Independent Current Functional Impairments (Reported) Functional Limitations- ADL's does all housekeeping/ gardening, assists him with shower Personal Factors Other Personal Factors That May Effect Hx R TKA, afib Therapy/Recovery PT-OP-C Subjective Start: 10/22/21 07:55 Freq: Status: Active Protocol: Document 11/01/21 11:00 AMB (Rec: 11/01/21 13:02 AMB [id number]) OP-PT Subjective Patient Comments Patient Comments Sonya and Scot state that the exercises at the countertop are more stable. PT-OP-D Balance Start: 10/22/21 07:55 Freq: Status: Active Protocol: Document 10/26/21 09:45 AMB (Rec: 10/26/21 13:33 AMB [id number]) Balance Tests mCTSIB mCTSIB Position 1 30 sec mCTSIB Position 2 10 sec increased ankle PT-OP-E Functional Tests Start: 10/22/21 07:55 Freq: Status: Active Protocol: Document 10/26/21 09:45 AMB (Rec: 10/26/21 13:33 AMB [id number]) Functional Tests 6 Minute Walk Test Distance 1219 Device Used none Comments difficulty with pathfinding 10 Meter Walk Test Distance 9 seconds Device Used none Dynamic Gait Index (DGI) Score 14 DGI Impairment Rating 40 to <60% Impaired (Score 10- 14) Five Times Sit to Stand Test Score 19 PT-OP-G Mobility & Gait Start: 10/22/21 07:55 Freq: Status: Active Protocol: Document 10/26/21 09:45 AMB (Rec: 10/26/21 13:33 AMB [id number]) OP Gait Assessment Comments Gait Comments Scot ambulates with moderate armswing but no spinal rotation and R LE externally rotated PT-OP-J Posture/Palpation/Skin Start: 10/22/21 07:55 Freq: Status: Active Protocol: Document 10/26/21 09:45 AMB (Rec: 10/26/21 13:33 AMB [id number]) Posture Evaluation Comments Posture Comments Increased thoracic kyphosis, forward shoulders, forward head PT-OP-Q Treatments Start: 10/22/21 07:55 Freq: Status: Active Protocol: Document 11/01/21 11:00 AMB (Rec: 11/01/21 14:18 AMB [id number]) Therapeutic Activity Therapeutic Activity buttoning Name shirt buttons Comments wrist button challenging, encouraged big push, taking break if needed Handwriting Reps/Minutes 5' Comments with breaks for finger flicks and cues to move UE as Scot writes Neuro Re-Education Treatment Other Activities Floor to ceiling Details w/ added finger flicks Reps/Duration x10 [id number] Details w/ added finger flicks Reps/Duration x10 ea fwd step Details modified with railing Reps/Duration x10 ea sideways step Details modified with railing Reps/Duration 10x ea Comments cues to rotate neck backwards step Details modified with railing Reps/Duration x10 ea Comments CGA for backwards step fwd rock/reach Reps/Duration x10 ea Comments pt holding railing with one hand, PT CGA Sideways rock/reach Details modified Reps/Duration x10 ea Comments heavy cues for weight shift, cervical movement Sit<>stand Details std height chair Reps/Duration x10 Comments cues to reach arms big upon standing PT-OP-T Assessment and Plan Start: 10/22/21 07:55 Freq: Status: Active Protocol: Document 11/01/21 11:00 AMB (Rec: 11/01/21 13:02 AMB [id number]) Physical Therapy Assessment Goals Three Impairment Gait Short Term Goal (STG) Scot will improve his 6MWT to 1 , 300ft. STG Duration 2 weeks Two Impairment Fine motor Short Term Goal (STG) Scot will write a card to his with good legibility. STG Duration 2 weeks Residential Goal (LTG) Scot will use exercises and rest breaks so that he can use a fork successfully at dinner . LTG Duration 5 weeks One Impairment Balance Short Term Goal (STG) Scot will improve his DGI score to at least 20/24. STG Duration 2 weeks External Grinder Goal (LTG) Scot will take a large step forward without UE support without LOB to show improved dynamic balance. LTG Duration 4 weeks Assessment Summary Assessment Educated /patient on nature of PD today, how it makes pt feel that he is moving normally even though he is moving smaller. Moved to railing instead of chair for UE support so pt would feel more supported to see if this would help with amplitude. Pt continues to need heavy cues for correct performance of exercises. Physical Therapy Plan Next Visit Focus/Plan Next Note Type Treatment Note Next Visit Plan Progress with adapted LSVT Big (recommend gait belt for all standing exercises), continue working on gait and balance, can add in fine motor activities as time allows ( buttons, handwriting, handling a fork)
--- NOTE | 2021-11-05 12:10 | PT.OTN ---
Current Diagnoses Parkinson's disease (11/05/21) Physical Therapy Treatment Note PT-OP-A Visit Information Start: 10/22/21 07:55 Freq: Status: Active Protocol: Document 11/05/21 11:00 MA (Rec: 11/05/21 12:10 MA [id number]) Out-Patient Physical Therapy Visit Information Visit Information Visit Type Treatment Note Visit Start Time 11:00 Visit Stop Time 11:57 Total Visit Minutes 57 Visit Number 6 Number of FLOOR SANDING MACHINE OPERATOR Visits 1 PT-OP-B Current Condition Start: 10/22/21 07:55 Freq: Status: Active Protocol: Document 10/26/21 09:45 AMB (Rec: 10/26/21 10:10 AMB [id number]) Current Condition History of Current Condition Onset Date 1 year ago Current Complaints Falls, tremor History of Current Condition Scot attends physical therapy with his Sonya. It sounds like he was diagnosed with Parkinsons about a year ago. noticed he wasn't swinging his arms as much, pt thought he had resting tremor in the R UE. Every day he walks 1.2 miles without AD. Also does lunges- with UE support, sit to stands, sit ups, push ups, stationary bike , rowing machine, weights. Does have a history of falls, better now that he's on sinemet. /family don't let him drive or go on bike rides anymore and he is sad about this. No stairs in the house. Does report lightheaded history when walking but hasn't had that happen in a while- reports 2 falls in last 3 months. Treatment Goals Patient/Caregiver Goals Exercise, improve handwriting Prior Functional Status Baseline Function- ADL's Independent Baseline Function- Mobility Independent Current Functional Impairments (Reported) Functional Limitations- ADL's does all housekeeping/ gardening, assists him with shower Personal Factors Other Personal Factors That May Effect Hx R TKA, afib Therapy/Recovery PT-OP-C Subjective Start: 10/22/21 07:55 Freq: Status: Active Protocol: Document 11/05/21 11:00 MA (Rec: 11/05/21 12:10 MA [id number]) OP-PT Subjective Patient Comments Patient Comments Scot states he did the BIG exercises once a day over the weekend and continued doing his 180 lunges a day. PT-OP-D Balance Start: 10/22/21 07:55 Freq: Status: Active Protocol: Document 10/26/21 09:45 AMB (Rec: 10/26/21 13:33 AMB [id number]) Balance Tests mCTSIB mCTSIB Position 1 30 sec mCTSIB Position 2 10 sec increased ankle PT-OP-E Functional Tests Start: 10/22/21 07:55 Freq: Status: Active Protocol: Document 10/26/21 09:45 AMB (Rec: 10/26/21 13:33 AMB [id number]) Functional Tests 6 Minute Walk Test Distance 1219 Device Used none Comments difficulty with pathfinding 10 Meter Walk Test Distance 9 seconds Device Used none Dynamic Gait Index (DGI) Score 14 DGI Impairment Rating 40 to <60% Impaired (Score 10- 14) Five Times Sit to Stand Test Score 19 PT-OP-G Mobility & Gait Start: 10/22/21 07:55 Freq: Status: Active Protocol: Document 10/26/21 09:45 AMB (Rec: 10/26/21 13:33 AMB [id number]) OP Gait Assessment Comments Gait Comments Scot ambulates with moderate armswing but no spinal rotation and R LE externally rotated PT-OP-J Posture/Palpation/Skin Start: 10/22/21 07:55 Freq: Status: Active Protocol: Document 10/26/21 09:45 AMB (Rec: 10/26/21 13:33 AMB [id number]) Posture Evaluation Comments Posture Comments Increased thoracic kyphosis, forward shoulders, forward head PT-OP-Q Treatments Start: 10/22/21 07:55 Freq: Status: Active Protocol: Document 11/05/21 11:00 MA (Rec: 11/05/21 12:10 MA [id number]) Therapeutic Activity Therapeutic Activity buttoning Name shirt buttons Comments wrist button challenging, encouraged big push, taking break if needed Gait Training Gait Activity Hurdles Device Used gait belt Level of Assistance CGA-Min A in //bars Surface level Distance/Duration 3x 6 hurdles fwd, 2x laterally Treatment Focus increasing step height Comments added t-pads between hurdles for increased challenge BIG Description indoor BIG walking Device Used none Level of Assistance SBA Surface even Distance/Duration 5' Treatment Focus BIG walking, increasing arm swings and step height/length Comments decreased shd ext on L, Min A 2x for LOB Neuro Re-Education Treatment Balance Activities WBOS Surface uneven Equipment blue foam Comments throwing ball outside NOE . Min-Mod A for psoterior lean Tandem Details modified tandem Surface uneven Equipment blue t-pads Reps/Duration 5' Comments 1. standing EO/EC (CGA-Rosi) Other Activities Floor to ceiling Details w/ added finger flicks Reps/Duration x10 [id number]-fdur Details w/ added finger flicks Reps/Duration x10 ea fwd step Details modified with railing Reps/Duration x10 ea sideways step Details modified with railing Reps/Duration 10x ea Comments cues to rotate neck backwards step Details modified with railing Reps/Duration x10 ea Comments CGA for backwards step fwd rock/reach Reps/Duration x10 ea Comments pt holding railing with one hand, PT CGA Sideways rock/reach Details modified Reps/Duration x10 ea Comments heavy cues for weight shift, cervical movement Sit<>stand Details std height chair Reps/Duration x10 Comments cues to reach arms big upon standing PT-OP-T Assessment and Plan Start: 10/22/21 07:55 Freq: Status: Active Protocol: Document 11/05/21 11:00 MA (Rec: 11/05/21 12:10 MA [id number]) Physical Therapy Assessment Goals Three Impairment Gait Short Term Goal (STG) Scot will improve his 6MWT to 1 , 300ft. STG Duration 2 weeks Two Impairment Fine motor Short Term Goal (STG) Scot will write a card to his with good legibility. STG Duration 2 weeks Bander And Cellophaner Machine Goal (LTG) Scot will use exercises and rest breaks so that he can use a fork successfully at dinner . LTG Duration 5 weeks One Impairment Balance Short Term Goal (STG) Scot will improve his DGI score to at least 20/24. STG Duration 2 weeks Bander And Cellophaner Machine Goal (LTG) Scot will take a large step forward without UE support without LOB to show improved dynamic balance. LTG Duration 4 weeks Assessment Summary Assessment Scot requires heavy cues for all BIG exercises that require him to turn [id number]. Increased time is spent on form this session, with BIG exercises taking 30 minutes. Began working on balance with pt having most most difficulty with dual tasking, catching a ball while balancing. Physical Therapy Plan Frequency and Duration Frequency of Treatment 4x/Week Duration of Treatment 5 weeks Plan of Care Start Date 10/26/21 Plan of Care End Date 11/30/21 Therapeutic Interventions Therapeutic Interventions Balance Training,Gait Training ,Home Exercise Program, Neuromuscular Re-education, Self-Care/Home Management, Therapeutic Activities, Therapeutic Exercises Next Visit Focus/Plan Next Note Type Treatment Note Next Visit Plan Progress with adapted LSVT Big (recommend gait belt for all standing exercises), continue working on gait and balance, can add in fine motor activities as time allows ( buttons, handwriting, handling a fork)
--- NOTE | 2021-11-06 16:10 | PT.OTN ---
Current Diagnoses Parkinson's disease (11/06/21) Physical Therapy Treatment Note PT-OP-A Visit Information Start: 10/22/21 07:55 Freq: Status: Active Protocol: Document 11/06/21 15:52 AMB (Rec: 11/06/21 16:10 AMB [id number]) Out-Patient Physical Therapy Visit Information Visit Information Visit Type Treatment Note Visit Start Time 11:00 Visit Stop Time 11:57 Total Visit Minutes 57 Visit Number 7 Number of LABORER CHEMICAL PROCESSING Visits 0 PT-OP-B Current Condition Start: 10/22/21 07:55 Freq: Status: Active Protocol: Document 10/26/21 09:45 AMB (Rec: 10/26/21 10:10 AMB [id number]) Current Condition History of Current Condition Onset Date 1 year ago Current Complaints Falls, tremor History of Current Condition Scot attends physical therapy with his Sonya. It sounds like he was diagnosed with Parkinsons about a year ago. noticed he wasn't swinging his arms as much, pt thought he had resting tremor in the R UE. Every day he walks 1.2 miles without AD. Also does lunges- with UE support, sit to stands, sit ups, push ups, stationary bike , rowing machine, weights. Does have a history of falls, better now that he's on sinemet. /family don't let him drive or go on bike rides anymore and he is sad about this. No stairs in the house. Does report lightheaded history when walking but hasn't had that happen in a while- reports 2 falls in last 3 months. Treatment Goals Patient/Caregiver Goals Exercise, improve handwriting Prior Functional Status Baseline Function- ADL's Independent Baseline Function- Mobility Independent Current Functional Impairments (Reported) Functional Limitations- ADL's does all housekeeping/ gardening, assists him with shower Personal Factors Other Personal Factors That May Effect Hx R TKA, afib Therapy/Recovery PT-OP-C Subjective Start: 10/22/21 07:55 Freq: Status: Active Protocol: Document 11/06/21 15:52 AMB (Rec: 11/06/21 16:10 AMB [id number]) OP-PT Subjective Patient Comments Patient Comments Scot and Sonya state he is doing his his HEP 1x/day, he doesn't have time to do his HEP 2x/day because of all of his other exercises take a lot of time. PT-OP-D Balance Start: 10/22/21 07:55 Freq: Status: Active Protocol: Document 10/26/21 09:45 AMB (Rec: 10/26/21 13:33 AMB [id number]) Balance Tests mCTSIB mCTSIB Position 1 30 sec mCTSIB Position 2 10 sec increased ankle PT-OP-E Functional Tests Start: 10/22/21 07:55 Freq: Status: Active Protocol: Document 10/26/21 09:45 AMB (Rec: 10/26/21 13:33 AMB [id number]) Functional Tests 6 Minute Walk Test Distance 1219 Device Used none Comments difficulty with pathfinding 10 Meter Walk Test Distance 9 seconds Device Used none Dynamic Gait Index (DGI) Score 14 DGI Impairment Rating 40 to <60% Impaired (Score 10- 14) Five Times Sit to Stand Test Score 19 PT-OP-G Mobility & Gait Start: 10/22/21 07:55 Freq: Status: Active Protocol: Document 10/26/21 09:45 AMB (Rec: 10/26/21 13:33 AMB [id number]) OP Gait Assessment Comments Gait Comments Scot ambulates with moderate armswing but no spinal rotation and R LE externally rotated PT-OP-J Posture/Palpation/Skin Start: 10/22/21 07:55 Freq: Status: Active Protocol: Document 10/26/21 09:45 AMB (Rec: 10/26/21 13:33 AMB [id number]) Posture Evaluation Comments Posture Comments Increased thoracic kyphosis, forward shoulders, forward head PT-OP-Q Treatments Start: 10/22/21 07:55 Freq: Status: Active Protocol: Document 11/06/21 15:52 AMB (Rec: 11/06/21 16:10 AMB [id number]) Therapeutic Activity Therapeutic Activity weighted silverware Comments spoon and fork with bowl full of pompoms- discussed member service representative options, with pt with more control with member service representative closer in. Handwriting Reps/Minutes 5' Comments with breaks for finger flicks and cues to move UE as Scot writes- foam around pen Gait Training Gait Activity BIG Description indoor BIG walking Device Used none Level of Assistance SBA Surface even Distance/Duration 5' Treatment Focus BIG walking, increasing arm swings and step height/length Comments no LOB, but pt quite challenged by dual task: counting up by 3s Neuro Re-Education Treatment Other Activities Floor to ceiling Details w/ added finger flicks Reps/Duration x10 [id number] Details w/ added finger flicks Reps/Duration x10 ea fwd step Details modified with railing Reps/Duration x10 ea sideways step Details modified with railing Reps/Duration 10x ea Comments cues to rotate neck backwards step Details modified with railing Reps/Duration x10 ea Comments SBA fwd rock/reach Reps/Duration x10 ea Comments pt holding railing with one hand, PT CGA Sideways rock/reach Details modified Reps/Duration x10 ea Comments heavy cues for weight shift, cervical movement Sit<>stand Details std height chair Reps/Duration x10 Comments cues to reach arms big upon standing, foot placement PT-OP-T Assessment and Plan Start: 10/22/21 07:55 Freq: Status: Active Protocol: Document 11/06/21 15:52 AMB (Rec: 11/06/21 16:10 AMB [id number]) Physical Therapy Assessment Goals Three Impairment Gait Short Term Goal (STG) Scot will improve his 6MWT to 1 , 300ft. STG Duration 2 weeks Two Impairment Fine motor Short Term Goal (STG) Scot will write a card to his with good legibility. STG Duration 2 weeks Tool And Die Machinist Goal (LTG) Scot will use exercises and rest breaks so that he can use a fork successfully at dinner . LTG Duration 5 weeks One Impairment Balance Short Term Goal (STG) Scot will improve his DGI score to at least 20/24. STG Duration 2 weeks Tool And Die Machinist Goal (LTG) Scot will take a large step forward without UE support without LOB to show improved dynamic balance. LTG Duration 4 weeks Assessment Summary Assessment Scot did well with weighted spoon, weighted fork was more challenging. Discussed larger pen as well for writing. Continues to need cues for coordination, gait with dual tasking was challenging and gait quality declined significantly, discussed importance of not being distracted with conversation while participating in more advanced gait tasks. Physical Therapy Plan Next Visit Focus/Plan Next Note Type Treatment Note Next Visit Plan Progress with adapted LSVT Big (recommend gait belt for all standing exercises), continue working on gait and balance, can add in fine motor activities as time allows ( buttons, handwriting, handling a fork)
--- NOTE | 2021-11-07 12:01 | PT.OTN ---
Current Diagnoses Parkinson's disease (11/07/21) Physical Therapy Treatment Note PT-OP-A Visit Information Start: 10/22/21 07:55 Freq: Status: Active Protocol: Document 11/07/21 10:58 MA (Rec: 11/07/21 12:00 MA [id number]) Out-Patient Physical Therapy Visit Information Visit Information Visit Type Treatment Note Visit Start Time 11:00 Visit Stop Time 11:58 Total Visit Minutes 58 Visit Number 8 Number of SEMICONDUCTOR PACKAGES PLATEMAKER Visits 1 PT-OP-B Current Condition Start: 10/22/21 07:55 Freq: Status: Active Protocol: Document 10/26/21 09:45 AMB (Rec: 10/26/21 10:10 AMB [id number]) Current Condition History of Current Condition Onset Date 1 year ago Current Complaints Falls, tremor History of Current Condition Scot attends physical therapy with his Sonya. It sounds like he was diagnosed with Parkinsons about a year ago. noticed he wasn't swinging his arms as much, pt thought he had resting tremor in the R UE. Every day he walks 1.2 miles without AD. Also does lunges- with UE support, sit to stands, sit ups, push ups, stationary bike , rowing machine, weights. Does have a history of falls, better now that he's on sinemet. /family don't let him drive or go on bike rides anymore and he is sad about this. No stairs in the house. Does report lightheaded history when walking but hasn't had that happen in a while- reports 2 falls in last 3 months. Treatment Goals Patient/Caregiver Goals Exercise, improve handwriting Prior Functional Status Baseline Function- ADL's Independent Baseline Function- Mobility Independent Current Functional Impairments (Reported) Functional Limitations- ADL's does all housekeeping/ gardening, assists him with shower Personal Factors Other Personal Factors That May Effect Hx R TKA, afib Therapy/Recovery PT-OP-C Subjective Start: 10/22/21 07:55 Freq: Status: Active Protocol: Document 11/07/21 10:58 MA (Rec: 11/07/21 12:00 MA [id number]) OP-PT Subjective Patient Comments Patient Comments Pt states he walked his 1.2 miles and did his lunges this morning. states she had tooth pulled and is going to stay in the lobby today since she doesn't feel great. PT-OP-D Balance Start: 10/22/21 07:55 Freq: Status: Active Protocol: Document 10/26/21 09:45 AMB (Rec: 10/26/21 13:33 AMB [id number]) Balance Tests mCTSIB mCTSIB Position 1 30 sec mCTSIB Position 2 10 sec increased ankle PT-OP-E Functional Tests Start: 10/22/21 07:55 Freq: Status: Active Protocol: Document 10/26/21 09:45 AMB (Rec: 10/26/21 13:33 AMB [id number]) Functional Tests 6 Minute Walk Test Distance 1219 Device Used none Comments difficulty with pathfinding 10 Meter Walk Test Distance 9 seconds Device Used none Dynamic Gait Index (DGI) Score 14 DGI Impairment Rating 40 to <60% Impaired (Score 10- 14) Five Times Sit to Stand Test Score 19 PT-OP-G Mobility & Gait Start: 10/22/21 07:55 Freq: Status: Active Protocol: Document 10/26/21 09:45 AMB (Rec: 10/26/21 13:33 AMB [id number]) OP Gait Assessment Comments Gait Comments Scot ambulates with moderate armswing but no spinal rotation and R LE externally rotated PT-OP-J Posture/Palpation/Skin Start: 10/22/21 07:55 Freq: Status: Active Protocol: Document 10/26/21 09:45 AMB (Rec: 10/26/21 13:33 AMB [id number]) Posture Evaluation Comments Posture Comments Increased thoracic kyphosis, forward shoulders, forward head PT-OP-Q Treatments Start: 10/22/21 07:55 Freq: Status: Active Protocol: Document 11/07/21 10:58 MA (Rec: 11/07/21 12:00 MA [id number]) Therapeutic Activity Therapeutic Activity hand dexterity Name beading Reps/Minutes 3' Comments large beads onto string weighted silverware Comments spoon scooping marbles, fork scooping pompoms- discussed adhesion tester options, with pt with more control with adhesion tester closer in. buttoning Name shirt buttons Comments wrist button challenging, encouraged big push, taking break if needed Handwriting Reps/Minutes 5' Comments with breaks for finger flicks and cues to move UE as Scot writes- foam around pen Neuro Re-Education Treatment Other Activities Floor to ceiling Details w/ added finger flicks Reps/Duration x10 [id number] Details w/ added finger flicks Reps/Duration x10 ea fwd step Details modified with railing Reps/Duration x10 ea sideways step Details modified with railing Reps/Duration 10x ea Comments cues to rotate neck backwards step Details modified with railing Reps/Duration x10 ea Comments SBA fwd rock/reach Reps/Duration x10 ea Comments pt holding railing with one hand, PT CGA Sideways rock/reach Details modified Reps/Duration x10 ea Comments heavy cues for weight shift, cervical movement Sit<>stand Details std height chair Reps/Duration x10 Comments cues to reach arms big upon standing, foot placement pt requires Min A several times this session awhen trying to stand PT-OP-T Assessment and Plan Start: 10/22/21 07:55 Freq: Status: Active Protocol: Document 11/07/21 10:58 MA (Rec: 11/07/21 12:00 MA [id number]) Physical Therapy Assessment Goals Three Impairment Gait Short Term Goal (STG) Scot will improve his 6MWT to 1 , 300ft. STG Duration 2 weeks Two Impairment Fine motor Short Term Goal (STG) Scot will write a card to his with good legibility. STG Duration 2 weeks Meat Cutter Apprentice Goal (LTG) Scot will use exercises and rest breaks so that he can use a fork successfully at dinner . LTG Duration 5 weeks One Impairment Balance Short Term Goal (STG) Scot will improve his DGI score to at least 20/24. STG Duration 2 weeks Half-Way Goal (LTG) Scot will take a large step forward without UE support without LOB to show improved dynamic balance. LTG Duration 4 weeks Assessment Summary Assessment Scot completes BIGexercises in 28 minutes this session. He continues to have difficulty with all exercises that requires turning from side-to- side. Used smiley face sticker for cues to turn head as he turns his body during exercises. Pt does well with using a weighted fork this session when stabbing at targets on table but has more difficulty if using fork to scoop. Physical Therapy Plan Frequency and Duration Frequency of Treatment 4x/Week Duration of Treatment 5 weeks Plan of Care Start Date 10/26/21 Plan of Care End Date 11/30/21 Therapeutic Interventions Therapeutic Interventions Balance Training,Gait Training ,Home Exercise Program, Neuromuscular Re-education, Self-Care/Home Management, Therapeutic Activities, Therapeutic Exercises Next Visit Focus/Plan Next Note Type Treatment Note Next Visit Plan Progress with adapted LSVT Big (recommend gait belt for all standing exercises), continue working on gait and balance, can add in fine motor activities as time allows ( buttons, handwriting, handling a fork)
--- NOTE | 2021-11-08 15:18 | PT.OTN ---
Current Diagnoses Parkinson's disease (11/08/21) Physical Therapy Treatment Note PT-OP-A Visit Information Start: 10/22/21 07:55 Freq: Status: Active Protocol: Document 11/08/21 13:00 AMB (Rec: 11/08/21 15:18 AMB [id number]) Out-Patient Physical Therapy Visit Information Visit Information Visit Type Progress Note Visit Start Time 13:00 Visit Stop Time 13:55 Total Visit Minutes 55 Visit Number 9 Number of COMBINING MACHINE OPERATOR Visits 0 PT-OP-B Current Condition Start: 10/22/21 07:55 Freq: Status: Active Protocol: Document 10/26/21 09:45 AMB (Rec: 10/26/21 10:10 AMB [id number]) Current Condition History of Current Condition Onset Date 1 year ago Current Complaints Falls, tremor History of Current Condition Scot attends physical therapy with his Sonya. It sounds like he was diagnosed with Parkinsons about a year ago. noticed he wasn't swinging his arms as much, pt thought he had resting tremor in the R UE. Every day he walks 1.2 miles without AD. Also does lunges- with UE support, sit to stands, sit ups, push ups, stationary bike , rowing machine, weights. Does have a history of falls, better now that he's on sinemet. /family don't let him drive or go on bike rides anymore and he is sad about this. No stairs in the house. Does report lightheaded history when walking but hasn't had that happen in a while- reports 2 falls in last 3 months. Treatment Goals Patient/Caregiver Goals Exercise, improve handwriting Prior Functional Status Baseline Function- ADL's Independent Baseline Function- Mobility Independent Current Functional Impairments (Reported) Functional Limitations- ADL's does all housekeeping/ gardening, assists him with shower Personal Factors Other Personal Factors That May Effect Hx R TKA, afib Therapy/Recovery PT-OP-C Subjective Start: 10/22/21 07:55 Freq: Status: Active Protocol: Document 11/08/21 13:00 AMB (Rec: 11/08/21 15:18 AMB [id number]) OP-PT Subjective Patient Comments Patient Comments Scot says his birthday was yesterday and is having some family come visit for a birthday alliance party this weekend. PT-OP-D Balance Start: 10/22/21 07:55 Freq: Status: Active Protocol: Document 10/26/21 09:45 AMB (Rec: 10/26/21 13:33 AMB [id number]) Balance Tests mCTSIB mCTSIB Position 1 30 sec mCTSIB Position 2 10 sec increased ankle PT-OP-E Functional Tests Start: 10/22/21 07:55 Freq: Status: Active Protocol: Document 11/08/21 13:00 AMB (Rec: 11/08/21 13:45 AMB [id number]) Functional Tests 6 Minute Walk Test Distance 1445 Device Used none Comments SBA Five Times Sit to Stand Test Score 22 PT-OP-G Mobility & Gait Start: 10/22/21 07:55 Freq: Status: Active Protocol: Document 10/26/21 09:45 AMB (Rec: 10/26/21 13:33 AMB [id number]) OP Gait Assessment Comments Gait Comments Scot ambulates with moderate armswing but no spinal rotation and R LE externally rotated PT-OP-J Posture/Palpation/Skin Start: 10/22/21 07:55 Freq: Status: Active Protocol: Document 10/26/21 09:45 AMB (Rec: 10/26/21 13:33 AMB [id number]) Posture Evaluation Comments Posture Comments Increased thoracic kyphosis, forward shoulders, forward head PT-OP-Q Treatments Start: 10/22/21 07:55 Freq: Status: Active Protocol: Document 11/08/21 13:00 AMB (Rec: 11/08/21 15:18 AMB [id number]) Gait Training Gait Activity 1 Description walking to mailbox-carryover Comments open door, big reach into mailbox, walking over uneven terrain BIG Description indoor BIG walking Device Used none Level of Assistance SBA Surface even Distance/Duration 6' Treatment Focus BIG walking, increasing arm swings and step height/length Comments no LOB, better pathfinding Neuro Re-Education Treatment Other Activities Floor to ceiling Details w/ added finger flicks Reps/Duration x10 [id number] Details w/ added finger flicks Reps/Duration x10 ea fwd step Details modified with railing Reps/Duration x10 ea sideways step Details modified with railing Reps/Duration 10x ea Comments cues to rotate neck backwards step Details modified with railing Reps/Duration x10 ea Comments SBA fwd rock/reach Reps/Duration x10 ea Comments pt holding railing with one hand, PT CGA Sideways rock/reach Details modified Reps/Duration x10 ea Comments heavy cues for weight shift, cervical movement Sit<>stand Details std height chair Reps/Duration x10 Comments cues to reach arms big upon standing, foot placement pt requires Min A x1 this session awhen trying to stand PT-OP-T Assessment and Plan Start: 10/22/21 07:55 Freq: Status: Active Protocol: Document 11/08/21 13:00 AMB (Rec: 11/08/21 15:18 AMB [id number]) Physical Therapy Assessment Goals Three Impairment Gait Short Term Goal (STG) Scot will improve his 6MWT to 1 , 300ft. STG Duration MET Two Impairment Fine motor Short Term Goal (STG) Scot will write a card to his with good legibility. STG Duration 2 weeks Baseball Glove Shaper Goal (LTG) Scot will use exercises and rest breaks so that he can use a fork successfully at dinner . LTG Duration 5 weeks Assessment Summary Assessment Encouraged Scot in carryover exercises today. He is very focused on the exercises he already does, encouraged in big walking, big pull to open door and check mail since that was an activity he mentioned. Not sure how much buy in we are getting from in, but Sonya does seem to understand at least with description of carryover of big posture. Scot did show good improvement in 6MWT, although cautioned that at the end his posture was more stooped forward and he needs to make sure he doesn't start going to fast and even more stooped. He continues to need cues for coordination of exercises. Physical Therapy Plan Next Visit Focus/Plan Next Note Type Treatment Note Next Visit Plan Progress with adapted LSVT Big , continue to work on gait safety, upright posture, fine motor activities, encourage carryover activities as able.
--- NOTE | 2021-11-12 12:00 | PT.OTN ---
Current Diagnoses Parkinson's disease (11/12/21) Physical Therapy Treatment Note PT-OP-A Visit Information Start: 10/22/21 07:55 Freq: Status: Active Protocol: Document 11/12/21 11:08 MA (Rec: 11/12/21 11:57 MA [id number]) Out-Patient Physical Therapy Visit Information Visit Information Visit Type Treatment Note Visit Start Time 11:05 Visit Stop Time 12:00 Total Visit Minutes 55 Visit Number 10 Number of TIRE MAKER Visits 1 PT-OP-B Current Condition Start: 10/22/21 07:55 Freq: Status: Active Protocol: Document 10/26/21 09:45 AMB (Rec: 10/26/21 10:10 AMB [id number]) Current Condition History of Current Condition Onset Date 1 year ago Current Complaints Falls, tremor History of Current Condition Scot attends physical therapy with his Sonya. It sounds like he was diagnosed with Parkinsons about a year ago. noticed he wasn't swinging his arms as much, pt thought he had resting tremor in the R UE. Every day he walks 1.2 miles without AD. Also does lunges- with UE support, sit to stands, sit ups, push ups, stationary bike , rowing machine, weights. Does have a history of falls, better now that he's on sinemet. /family don't let him drive or go on bike rides anymore and he is sad about this. No stairs in the house. Does report lightheaded history when walking but hasn't had that happen in a while- reports 2 falls in last 3 months. Treatment Goals Patient/Caregiver Goals Exercise, improve handwriting Prior Functional Status Baseline Function- ADL's Independent Baseline Function- Mobility Independent Current Functional Impairments (Reported) Functional Limitations- ADL's does all housekeeping/ gardening, assists him with shower Personal Factors Other Personal Factors That May Effect Hx R TKA, afib Therapy/Recovery PT-OP-C Subjective Start: 10/22/21 07:55 Freq: Status: Active Protocol: Document 11/12/21 11:08 MA (Rec: 11/12/21 11:57 MA [id number]) OP-PT Subjective Patient Comments Patient Comments Sonya states that today might not be a good day for Scot as he is distracted because their son-in-law is currently upstairs in the ICU and not doing well. PT-OP-D Balance Start: 10/22/21 07:55 Freq: Status: Active Protocol: Document 10/26/21 09:45 AMB (Rec: 10/26/21 13:33 AMB [id number]) Balance Tests mCTSIB mCTSIB Position 1 30 sec mCTSIB Position 2 10 sec increased ankle PT-OP-E Functional Tests Start: 10/22/21 07:55 Freq: Status: Active Protocol: Document 11/08/21 13:00 AMB (Rec: 11/08/21 13:45 AMB [id number]) Functional Tests 6 Minute Walk Test Distance 1445 Device Used none Comments SBA Five Times Sit to Stand Test Score 22 PT-OP-G Mobility & Gait Start: 10/22/21 07:55 Freq: Status: Active Protocol: Document 10/26/21 09:45 AMB (Rec: 10/26/21 13:33 AMB [id number]) OP Gait Assessment Comments Gait Comments Scot ambulates with moderate armswing but no spinal rotation and R LE externally rotated PT-OP-J Posture/Palpation/Skin Start: 10/22/21 07:55 Freq: Status: Active Protocol: Document 10/26/21 09:45 AMB (Rec: 10/26/21 13:33 AMB [id number]) Posture Evaluation Comments Posture Comments Increased thoracic kyphosis, forward shoulders, forward head PT-OP-Q Treatments Start: 10/22/21 07:55 Freq: Status: Active Protocol: Document 11/12/21 11:08 MA (Rec: 11/12/21 11:57 MA [id number]) Therapeutic Activity Therapeutic Activity buttoning Name shirt buttons Comments wrist button challenging, encouraged big push, taking break if needed Handwriting Reps/Minutes 5' Comments with breaks for finger flicks and cues to move UE as Scot writes Gait Training Gait Activity BIG Description indoor BIG walking Device Used none Level of Assistance SBA Surface even Distance/Duration 6' Treatment Focus BIG walking, increasing arm swings and step height/length Comments no LOB, better pathfinding Neuro Re-Education Treatment Balance Activities WBOS Surface even Comments with perturbations- see tandem below Tandem Details modified tandem Surface even Reps/Duration 5' Comments 1. with perturbations provided by PT- anteriorly, laterally, and posteriorly Other Activities Floor to ceiling Details w/ added finger flicks Reps/Duration x10 [id number] Details w/ added finger flicks Reps/Duration x10 ea fwd step Details modified with railing Reps/Duration x10 ea sideways step Details modified with railing Reps/Duration 10x ea Comments cues to rotate neck backwards step Details modified with railing Reps/Duration x10 ea Comments SBA fwd rock/reach Reps/Duration x10 ea Comments pt holding railing with one hand, PT CGA Sideways rock/reach Details modified Reps/Duration x10 ea Comments heavy cues for weight shift, cervical movement Sit<>stand Details std height chair Reps/Duration x10 Comments cues to reach arms big upon standing, foot placement, scooting to edge of chair to start PT-OP-T Assessment and Plan Start: 10/22/21 07:55 Freq: Status: Active Protocol: Document 11/12/21 11:08 MA (Rec: 11/12/21 11:57 MA [id number]) Physical Therapy Assessment Goals Three Impairment Gait Short Term Goal (STG) Scot will improve his 6MWT to 1 , 300ft. STG Duration MET Two Impairment Fine motor Short Term Goal (STG) Scot will write a card to his with good legibility. STG Duration 2 weeks Interpretive Program Coordinator Goal (LTG) Scot will use exercises and rest breaks so that he can use a fork successfully at dinner . LTG Duration 5 weeks One Impairment Balance Short Term Goal (STG) Scot will improve his DGI score to at least 20/24. STG Duration 2 weeks Interpretive Program Coordinator Goal (LTG) Scot will take a large step forward without UE support without LOB to show improved dynamic balance. LTG Duration 4 weeks Assessment Summary Assessment Scot requires heavy cues during 'finger flicks' to fully extend L fingers and during gait he tends to keep left hand as a tight fist unless cued to relax his fingers. He has more difficulty with sit<> stands and requires frequent cues to start at edge of chair vs scooting back and trying to stand by pushing posteriorly with back of legs against chair. Physical Therapy Plan Frequency and Duration Frequency of Treatment 4x/Week Duration of Treatment 5 weeks Plan of Care Start Date 10/26/21 Plan of Care End Date 11/30/21 Therapeutic Interventions Therapeutic Interventions Balance Training,Gait Training ,Home Exercise Program, Neuromuscular Re-education, Self-Care/Home Management, Therapeutic Activities, Therapeutic Exercises Next Visit Focus/Plan Next Note Type Treatment Note Next Visit Plan Progress with adapted LSVT Big , continue to work on gait safety, upright posture, fine motor activities, encourage carryover activities as able.
--- NOTE | 2021-11-13 13:00 | PT.OTN ---
Current Diagnoses Parkinson's disease (11/13/21) Physical Therapy Treatment Note PT-OP-A Visit Information Start: 10/22/21 07:55 Freq: Status: Active Protocol: Document 11/13/21 11:00 AMB (Rec: 11/13/21 12:42 AMB [id number]) Out-Patient Physical Therapy Visit Information Visit Information Visit Type Treatment Note Visit Start Time 11:00 Visit Stop Time 12:00 Total Visit Minutes 60 Visit Number 11 Number of HOME WORKER Visits 0 PT-OP-B Current Condition Start: 10/22/21 07:55 Freq: Status: Active Protocol: Document 10/26/21 09:45 AMB (Rec: 10/26/21 10:10 AMB [id number]) Current Condition History of Current Condition Onset Date 1 year ago Current Complaints Falls, tremor History of Current Condition Scot attends physical therapy with his Sonya. It sounds like he was diagnosed with Parkinsons about a year ago. noticed he wasn't swinging his arms as much, pt thought he had resting tremor in the R UE. Every day he walks 1.2 miles without AD. Also does lunges- with UE support, sit to stands, sit ups, push ups, stationary bike , rowing machine, weights. Does have a history of falls, better now that he's on sinemet. /family don't let him drive or go on bike rides anymore and he is sad about this. No stairs in the house. Does report lightheaded history when walking but hasn't had that happen in a while- reports 2 falls in last 3 months. Treatment Goals Patient/Caregiver Goals Exercise, improve handwriting Prior Functional Status Baseline Function- ADL's Independent Baseline Function- Mobility Independent Current Functional Impairments (Reported) Functional Limitations- ADL's does all housekeeping/ gardening, assists him with shower Personal Factors Other Personal Factors That May Effect Hx R TKA, afib Therapy/Recovery PT-OP-C Subjective Start: 10/22/21 07:55 Freq: Status: Active Protocol: Document 11/13/21 11:00 AMB (Rec: 11/13/21 12:42 AMB [id number]) OP-PT Subjective Patient Comments Patient Comments During the night the great toe can be painful (R), not hurting during the day. PT-OP-D Balance Start: 10/22/21 07:55 Freq: Status: Active Protocol: Document 10/26/21 09:45 AMB (Rec: 10/26/21 13:33 AMB [id number]) Balance Tests mCTSIB mCTSIB Position 1 30 sec mCTSIB Position 2 10 sec increased ankle PT-OP-E Functional Tests Start: 10/22/21 07:55 Freq: Status: Active Protocol: Document 11/08/21 13:00 AMB (Rec: 11/08/21 13:45 AMB [id number]) Functional Tests 6 Minute Walk Test Distance 1445 Device Used none Comments SBA Five Times Sit to Stand Test Score 22 PT-OP-G Mobility & Gait Start: 10/22/21 07:55 Freq: Status: Active Protocol: Document 10/26/21 09:45 AMB (Rec: 10/26/21 13:33 AMB [id number]) OP Gait Assessment Comments Gait Comments Scot ambulates with moderate armswing but no spinal rotation and R LE externally rotated PT-OP-J Posture/Palpation/Skin Start: 10/22/21 07:55 Freq: Status: Active Protocol: Document 10/26/21 09:45 AMB (Rec: 10/26/21 13:33 AMB [id number]) Posture Evaluation Comments Posture Comments Increased thoracic kyphosis, forward shoulders, forward head PT-OP-Q Treatments Start: 10/22/21 07:55 Freq: Status: Active Protocol: Document 11/13/21 11:00 AMB (Rec: 11/13/21 12:59 AMB [id number]) Therapeutic Activity Therapeutic Activity hand dexterity Name screws Reps/Minutes 10' Comments large and small, screw and unscrew Gait Training Gait Activity BIG Description indoor BIG walking Device Used none Level of Assistance SBA Surface even Distance/Duration 6' Treatment Focus BIG walking, increasing arm swings and step height/length Comments no LOB, better pathfinding-- difficult to dual task with conversation Neuro Re-Education Treatment Balance Activities WBOS Surface even Comments with perturbations- see tandem below Tandem Details modified tandem Surface even Reps/Duration 5' Comments 1. with perturbations provided by PT- anteriorly, laterally, and posteriorly Other Activities Floor to ceiling Details w/ added finger flicks Reps/Duration x10 [id number] Details w/ added finger flicks Reps/Duration x10 ea fwd step Details modified with railing, then without railing Reps/Duration x10 ea Comments pt was able to do without UE support but amplitude suffered sideways step Details modified with railing Reps/Duration 10x ea Comments cues to rotate neck backwards step Details modified with railing Reps/Duration x10 ea Comments SBA fwd rock/reach Reps/Duration x10 ea Comments pt holding railing with one hand, PT CGA Sideways rock/reach Details modified Reps/Duration x10 ea Comments heavy cues for weight shift, cervical movement Sit<>stand Details std height chair Reps/Duration x10 Comments cues to reach arms big upon standing, foot placement, scooting to edge of chair to start PT-OP-T Assessment and Plan Start: 10/22/21 07:55 Freq: Status: Active Protocol: Document 11/13/21 11:00 AMB (Rec: 11/13/21 12:59 AMB [id number]) Physical Therapy Assessment Goals Three Impairment Gait Short Term Goal (STG) Scot will improve his 6MWT to 1 , 300ft. STG Duration MET Two Impairment Fine motor Short Term Goal (STG) Scot will write a card to his with good legibility. STG Duration 2 weeks Net Web Application Developer Goal (LTG) Scot will use exercises and rest breaks so that he can use a fork successfully at dinner . LTG Duration 5 weeks One Impairment Balance Short Term Goal (STG) Scot will improve his DGI score to at least 20/24. STG Duration 2 weeks Net Web Application Developer Goal (LTG) Scot will take a large step forward without UE support without LOB to show improved dynamic balance. LTG Duration 4 weeks Assessment Summary Assessment Scot did not attend with his today as she was in the hospital with her SHANIA. Did try to work a little bit on BIG exercises with less UE support, but would just have pt do that in therapy, not at home. Pt does have difficulty with coordination of alternating UE and LE movements. He did not work on carryover exercises. Physical Therapy Plan Next Visit Focus/Plan Next Note Type Treatment Note Next Visit Plan Progress with adapted LSVT Big , continue to work on gait safety, upright posture, fine motor activities, encourage carryover activities as able.
--- NOTE | 2021-11-14 12:09 | PT.OTN ---
Current Diagnoses Parkinson's disease (11/14/21) Physical Therapy Treatment Note PT-OP-A Visit Information Start: 10/22/21 07:55 Freq: Status: Active Protocol: Document 11/14/21 11:12 MA (Rec: 11/14/21 12:08 MA [id number]) Out-Patient Physical Therapy Visit Information Visit Information Visit Type Treatment Note Visit Start Time 11:05 Visit Stop Time 12:00 Total Visit Minutes 55 Visit Number 12 Number of SOFTWARE CONTROLS ENGINEER Visits 1 PT-OP-B Current Condition Start: 10/22/21 07:55 Freq: Status: Active Protocol: Document 10/26/21 09:45 AMB (Rec: 10/26/21 10:10 AMB [id number]) Current Condition History of Current Condition Onset Date 1 year ago Current Complaints Falls, tremor History of Current Condition Scot attends physical therapy with his Sonya. It sounds like he was diagnosed with Parkinsons about a year ago. noticed he wasn't swinging his arms as much, pt thought he had resting tremor in the R UE. Every day he walks 1.2 miles without AD. Also does lunges- with UE support, sit to stands, sit ups, push ups, stationary bike , rowing machine, weights. Does have a history of falls, better now that he's on sinemet. /family don't let him drive or go on bike rides anymore and he is sad about this. No stairs in the house. Does report lightheaded history when walking but hasn't had that happen in a while- reports 2 falls in last 3 months. Treatment Goals Patient/Caregiver Goals Exercise, improve handwriting Prior Functional Status Baseline Function- ADL's Independent Baseline Function- Mobility Independent Current Functional Impairments (Reported) Functional Limitations- ADL's does all housekeeping/ gardening, assists him with shower Personal Factors Other Personal Factors That May Effect Hx R TKA, afib Therapy/Recovery PT-OP-C Subjective Start: 10/22/21 07:55 Freq: Status: Active Protocol: Document 11/14/21 11:12 MA (Rec: 11/14/21 12:09 MA [id number]) OP-PT Subjective Patient Comments Patient Comments Pt arrives with note from dr. Lin just states pt is doing well and should keep up with BIG program. PT-OP-D Balance Start: 10/22/21 07:55 Freq: Status: Active Protocol: Document 10/26/21 09:45 AMB (Rec: 10/26/21 13:33 AMB [id number]) Balance Tests mCTSIB mCTSIB Position 1 30 sec mCTSIB Position 2 10 sec increased ankle PT-OP-E Functional Tests Start: 10/22/21 07:55 Freq: Status: Active Protocol: Document 11/08/21 13:00 AMB (Rec: 11/08/21 13:45 AMB [id number]) Functional Tests 6 Minute Walk Test Distance 1445 Device Used none Comments SBA Five Times Sit to Stand Test Score 22 PT-OP-G Mobility & Gait Start: 10/22/21 07:55 Freq: Status: Active Protocol: Document 10/26/21 09:45 AMB (Rec: 10/26/21 13:33 AMB [id number]) OP Gait Assessment Comments Gait Comments Scot ambulates with moderate armswing but no spinal rotation and R LE externally rotated PT-OP-J Posture/Palpation/Skin Start: 10/22/21 07:55 Freq: Status: Active Protocol: Document 10/26/21 09:45 AMB (Rec: 10/26/21 13:33 AMB [id number]) Posture Evaluation Comments Posture Comments Increased thoracic kyphosis, forward shoulders, forward head PT-OP-Q Treatments Start: 10/22/21 07:55 Freq: Status: Active Protocol: Document 11/14/21 11:12 MA (Rec: 11/14/21 12:08 MA [id number]) Gait Training Gait Activity BIG Description indoor BIG walking Device Used none Level of Assistance SBA Surface even Distance/Duration 6' Treatment Focus BIG walking, increasing arm swings and step height/length Comments no LOB, better pathfinding-- difficult to dual task with conversation Tried dual coutning fwd and backwards. Attempted memory game after with pt having noticable decrease in speed during memory game. Neuro Re-Education Treatment Balance Activities WBOS Surface blue foam Comments with perturbations- see tandem below Tandem Details modified tandem Surface blue foam Reps/Duration 5' Comments 1. with gentle perturbations provided by PT- anteriorly, laterally, and posteriorly Other Activities Floor to ceiling Details w/ added finger flicks Reps/Duration x10 [id number] Details w/ added finger flicks Reps/Duration x10 ea fwd step Details modified with railing, then without railing Reps/Duration x10 ea Comments pt was able to do without UE support but amplitude suffered sideways step Details modified with railing Reps/Duration 10x ea Comments cues to rotate neck backwards step Details modified with railing Reps/Duration x10 ea Comments SBA fwd rock/reach Reps/Duration 2x10 ea Comments pt holding railing with one hand, PT CGA once with rail and once without rail- Min A required for balance Sideways rock/reach Details modified Reps/Duration x10 ea Comments heavy cues for weight shift, cervical movement Sit<>stand Details std height chair Reps/Duration x10 Comments cues to reach arms big upon standing, foot placement, scooting to edge of chair to start PT-OP-T Assessment and Plan Start: 10/22/21 07:55 Freq: Status: Active Protocol: Document 11/14/21 11:12 MA (Rec: 11/14/21 12:08 MA [id number]) Physical Therapy Assessment Goals Three Impairment Gait Short Term Goal (STG) Scot will improve his 6MWT to 1 , 300ft. STG Duration MET Two Impairment Fine motor Short Term Goal (STG) Scot will write a card to his with good legibility. STG Duration 2 weeks Half-Way Goal (LTG) Scot will use exercises and rest breaks so that he can use a fork successfully at dinner . LTG Duration 5 weeks One Impairment Balance Short Term Goal (STG) Scot will improve his DGI score to at least 20/24. STG Duration 2 weeks Half-Way Goal (LTG) Scot will take a large step forward without UE support without LOB to show improved dynamic balance. LTG Duration 4 weeks Assessment Summary Assessment Scot is challenged by balancing on foam pads vs on solid floor. He does well with his stepping exercises (fwd, lat, and bkwds) but begins to hang off the rail when doing his rock and reach exercises. Had pt step away from the bar for a second set, with pt requiring Min A to stay balanced. Pt is challenged by gait exercise with memory game and has noticable decrease in speed when working on remembering a list of objects. Physical Therapy Plan Frequency and Duration Frequency of Treatment 4x/Week Duration of Treatment 5 weeks Plan of Care Start Date 10/26/21 Plan of Care End Date 11/30/21 Therapeutic Interventions Therapeutic Interventions Balance Training,Gait Training ,Home Exercise Program, Neuromuscular Re-education, Self-Care/Home Management, Therapeutic Activities, Therapeutic Exercises Next Visit Focus/Plan Next Note Type Treatment Note Next Visit Plan Progress with adapted LSVT Big , continue to work on gait safety, upright posture, fine motor activities, encourage carryover activities as able.
--- NOTE | 2021-11-15 12:54 | PT.OTN ---
Current Diagnoses Parkinson's disease (11/15/21) Physical Therapy Treatment Note PT-OP-A Visit Information Start: 10/22/21 07:55 Freq: Status: Active Protocol: Document 11/15/21 11:00 AMB (Rec: 11/15/21 12:02 AMB [id number]) Out-Patient Physical Therapy Visit Information Visit Information Visit Type Treatment Note Visit Start Time 11:00 Visit Stop Time 12:00 Total Visit Minutes 60 Visit Number 13 PT-OP-B Current Condition Start: 10/22/21 07:55 Freq: Status: Active Protocol: Document 10/26/21 09:45 AMB (Rec: 10/26/21 10:10 AMB [id number]) Current Condition History of Current Condition Onset Date 1 year ago Current Complaints Falls, tremor History of Current Condition Scot attends physical therapy with his Sonya. It sounds like he was diagnosed with Parkinsons about a year ago. noticed he wasn't swinging his arms as much, pt thought he had resting tremor in the R UE. Every day he walks 1.2 miles without AD. Also does lunges- with UE support, sit to stands, sit ups, push ups, stationary bike , rowing machine, weights. Does have a history of falls, better now that he's on sinemet. /family don't let him drive or go on bike rides anymore and he is sad about this. No stairs in the house. Does report lightheaded history when walking but hasn't had that happen in a while- reports 2 falls in last 3 months. Treatment Goals Patient/Caregiver Goals Exercise, improve handwriting Prior Functional Status Baseline Function- ADL's Independent Baseline Function- Mobility Independent Current Functional Impairments (Reported) Functional Limitations- ADL's does all housekeeping/ gardening, assists him with shower Personal Factors Other Personal Factors That May Effect Hx R TKA, afib Therapy/Recovery PT-OP-C Subjective Start: 10/22/21 07:55 Freq: Status: Active Protocol: Document 11/15/21 11:00 AMB (Rec: 11/15/21 12:53 AMB [id number]) OP-PT Subjective Patient Comments Patient Comments Pt and his attend therapy today. she states that she will make sure that he does his big exercises upon graduation. PT-OP-D Balance Start: 10/22/21 07:55 Freq: Status: Active Protocol: Document 10/26/21 09:45 AMB (Rec: 10/26/21 13:33 AMB [id number]) Balance Tests mCTSIB mCTSIB Position 1 30 sec mCTSIB Position 2 10 sec increased ankle PT-OP-E Functional Tests Start: 10/22/21 07:55 Freq: Status: Active Protocol: Document 11/08/21 13:00 AMB (Rec: 11/08/21 13:45 AMB [id number]) Functional Tests 6 Minute Walk Test Distance 1445 Device Used none Comments SBA Five Times Sit to Stand Test Score 22 PT-OP-G Mobility & Gait Start: 10/22/21 07:55 Freq: Status: Active Protocol: Document 10/26/21 09:45 AMB (Rec: 10/26/21 13:33 AMB [id number]) OP Gait Assessment Comments Gait Comments Scot ambulates with moderate armswing but no spinal rotation and R LE externally rotated PT-OP-J Posture/Palpation/Skin Start: 10/22/21 07:55 Freq: Status: Active Protocol: Document 10/26/21 09:45 AMB (Rec: 10/26/21 13:33 AMB [id number]) Posture Evaluation Comments Posture Comments Increased thoracic kyphosis, forward shoulders, forward head PT-OP-Q Treatments Start: 10/22/21 07:55 Freq: Status: Active Protocol: Document 11/15/21 11:00 AMB (Rec: 11/15/21 12:53 AMB [id number]) Therapeutic Activity Therapeutic Activity Handwriting Reps/Minutes 5' Comments with breaks for finger flicks and cues to move UE as Scot writes-- extra challenging today Gait Training Gait Activity BIG Description indoor BIG walking Device Used none Level of Assistance SBA Surface even Distance/Duration 6' Treatment Focus BIG walking, increasing arm swings and step height/length Comments no LOB, better pathfinding-- difficult to dual task with conversation Neuro Re-Education Treatment Balance Activities Tandem Details modified tandem Surface even Reps/Duration 5' Comments 1. with perturbations provided by PT- anteriorly, laterally, and posteriorly Other Activities Floor to ceiling Details w/ added finger flicks Reps/Duration x10 [id number] Details w/ added finger flicks Reps/Duration x10 ea fwd step Details modified with railing, Reps/Duration x10 ea Comments cues for amplitude- stepping over hurdles sideways step Details modified with railing Reps/Duration 10x ea Comments cues to rotate neck backwards step Details modified with railing Reps/Duration x10 ea Comments SBA fwd rock/reach Reps/Duration 2x10 ea Comments pt holding railing with one hand, PT CGA Sideways rock/reach Details modified Reps/Duration x10 ea Comments heavy cues for weight shift, cervical movement Sit<>stand Details std height chair Reps/Duration x10 Comments cues to reach arms big upon standing, foot placement, scooting to edge of chair to start PT-OP-T Assessment and Plan Start: 10/22/21 07:55 Freq: Status: Active Protocol: Document 11/15/21 11:00 AMB (Rec: 11/15/21 12:53 AMB [id number]) Physical Therapy Assessment Goals Three Impairment Gait Short Term Goal (STG) Scot will improve his 6MWT to 1 , 300ft. STG Duration MET Two Impairment Fine motor Short Term Goal (STG) Scot will write a card to his with good legibility. STG Duration 2 weeks Jewel Diameter Gauger Goal (LTG) Scot will use exercises and rest breaks so that he can use a fork successfully at dinner . LTG Duration 5 weeks One Impairment Balance Short Term Goal (STG) Scot will improve his DGI score to at least 20/24. STG Duration 2 weeks Group Home Goal (LTG) Scot will take a large step forward without UE support without LOB to show improved dynamic balance. LTG Duration 4 weeks Assessment Summary Assessment Scot needed cues to increase his amplitude with his stepping exercises. Had him step over ofelia with forward step. Was able to perform but hit ofelia multiple times when stepping back to neutral from the forward step. Was able to step over ofelia/cones during gait activity that did not involve stepping back. Physical Therapy Plan Frequency and Duration Frequency of Treatment 4x/Week Duration of Treatment 5 weeks Plan of Care Start Date 10/26/21 Plan of Care End Date 11/30/21 Therapeutic Interventions Therapeutic Interventions Balance Training,Gait Training ,Home Exercise Program, Neuromuscular Re-education, Self-Care/Home Management, Therapeutic Activities, Therapeutic Exercises Next Visit Focus/Plan Next Note Type Treatment Note Next Visit Plan Progress with adapted LSVT Big , continue to work on gait safety, upright posture, fine motor activities, encourage carryover activities as able.
--- NOTE | 2021-11-22 16:01 | PT.OPDS ---
Current Diagnoses Parkinson's disease (11/15/21) Visit Care Team Role Provider Type Vega Song MD Attending Provider Physician Family Provider Primary Care Provider Referring Provider Specialty: Internal Medicine Address: [address] [place] [address], [facility] Email: [email or web address] Visit Number Visit Number 13 Discharge Summary PT-OP-B Current Condition Start: 10/22/21 07:55 Freq: Status: Active Protocol: Document 10/26/21 09:45 AMB (Rec: 10/26/21 10:10 AMB [id number]) Current Condition History of Current Condition Onset Date 1 year ago Current Complaints Falls, tremor History of Current Condition Scot attends physical therapy with his Sonya. It sounds like he was diagnosed with Parkinsons about a year ago. noticed he wasn't swinging his arms as much, pt thought he had resting tremor in the R UE. Every day he walks 1.2 miles without AD. Also does lunges- with UE support, sit to stands, sit ups, push ups, stationary bike , rowing machine, weights. Does have a history of falls, better now that he's on sinemet. /family don't let him drive or go on bike rides anymore and he is sad about this. No stairs in the house. Does report lightheaded history when walking but hasn't had that happen in a while- reports 2 falls in last 3 months. Treatment Goals Patient/Caregiver Goals Exercise, improve handwriting Prior Functional Status Baseline Function- ADL's Independent Baseline Function- Mobility Independent Current Functional Impairments (Reported) Functional Limitations- ADL's does all housekeeping/ gardening, assists him with shower Personal Factors Other Personal Factors That May Effect Hx R TKA, afib Therapy/Recovery PT-OP-C Subjective Start: 10/22/21 07:55 Freq: Status: Active Protocol: Document 11/15/21 11:00 AMB (Rec: 11/15/21 12:53 AMB [id number]) OP-PT Subjective Patient Comments Patient Comments Pt and his attend therapy today. she states that she will make sure that he does his big exercises upon graduation. PT-OP-D Balance Start: 02/28/22 07:55 Freq: Status: Active Protocol: Document 10/26/21 09:45 AMB (Rec: 10/26/21 13:33 AMB [id number]) Balance Tests mCTSIB mCTSIB Position 1 30 sec mCTSIB Position 2 10 sec increased ankle PT-OP-E Functional Tests Start: 10/22/21 07:55 Freq: Status: Active Protocol: Document 11/08/21 13:00 AMB (Rec: 11/08/21 13:45 AMB [id number]) Functional Tests 6 Minute Walk Test Distance 1445 Device Used none Comments SBA Five Times Sit to Stand Test Score 22 PT-OP-G Mobility & Gait Start: 10/22/21 07:55 Freq: Status: Active Protocol: Document 10/26/21 09:45 AMB (Rec: 10/26/21 13:33 AMB [id number]) OP Gait Assessment Comments Gait Comments Scot ambulates with moderate armswing but no spinal rotation and R LE externally rotated PT-OP-J Posture/Palpation/Skin Start: 10/22/21 07:55 Freq: Status: Active Protocol: Document 10/26/21 09:45 AMB (Rec: 10/26/21 13:33 AMB [id number]) Posture Evaluation Comments Posture Comments Increased thoracic kyphosis, forward shoulders, forward head PT-OP-T Assessment and Plan Start: 10/22/21 07:55 Freq: Status: Active Protocol: Document 11/22/21 15:59 AMB (Rec: 11/22/21 16:01 AMB [id number]) Physical Therapy Assessment Goals Three Impairment Gait Short Term Goal (STG) Scot will improve his 6MWT to 1 , 300ft. STG Duration MET Two Impairment Fine motor Short Term Goal (STG) Scot will write a card to his with good legibility. STG Duration 2 weeks Fire Information Officer Goal (LTG) Scot will use exercises and rest breaks so that he can use a fork successfully at dinner . LTG Duration 5 weeks One Impairment Balance Short Term Goal (STG) Scot will improve his DGI score to at least 20/24. STG Duration 2 weeks Alf Goal (LTG) Scot will take a large step forward without UE support without LOB to show improved dynamic balance. LTG Duration 4 weeks Assessment Summary Assessment Scot attended 3/4 of the BIG program, and then due to a scheduling error did not have further appointments. This therapist called and apologized and offered other appointments, but the patient declined, stating that his son is in town. Educated the patient that often patients do return for follow up in a year for a refesher course and that he would be welcome to return. Overall Scot had difficulty with using larger amplitude with functional and carryover activities, but was doing the exercises asked of him 1x/day. Physical Therapy Plan Discharge Physical Therapy Discharge Reasons Patient Request
== END 2021-11-27 13:59 ==
LOC: PHYS 11:00
PROVIDERS: Family Provider Internal Medicine; PCP Internal Medicine; Referring Provider Internal Medicine; Visit Provider Internal Medicine
DX: G20 Parkinson's disease (principal)
CPT/HCPCS: 97112; 97116; 97161; 97530

== ENCOUNTER 2021-12-06 06:58 | Emergency (ER) | payer MEDICARE, SELFPAY ==
[2021-12-06] VITALS (12 sets, daily range): BP systolic 121–186; BP diastolic 58–82; PULSE 48–55; RESP 18–20; O2SAT 94–100
[2021-12-06 08:25] LABS: Appearance Urine UA TURBID; Bilirubin Urine UA NEGATIVE (NEGATIVE); Color Urine UA RED; Glucose Urine UA TRACE g/dL (Negative); Ketones Urine UA TRACE (NEGATIVE); Leukocyte Esterase Urine UA 1+ (NEGATIVE); Nitrite Urine UA POSITIVE (Negative); Occult Blood Urine UA 3+ (Negative); Protein Urine UA 3+ (Negative)
[2021-12-06 08:42] LABS: Bacteria Urine Many (>30); Culture Indicated Urine Specimen Cultured; RBC Urine >100/HPF (0-5/HPF); Squamous Epithelial Cell Urine 0-1 /HPF (0-5/HPF); WBC Urine 5-10/HPF (0-5/HPF)
--- NOTE | 2021-12-06 08:46 | ED_ITS ---
HPI - Male Genitourinary General Chief complaint: Urogenital-Male Stated complaint: no urniation and bleeding from penis, weak Time Seen by Provider: 12/06/21 08:30 Source: patient and family Mode of arrival: Wheelchair History of Present Illness HPI Narrative: Patient is a duncan 86-year-old male who has a history of atrial fibrillation on Eliquis and Parkinson's presenting today with hematuria. He does ride exercise bike is regularly 2 days ago he did notice some blood in his urine but today it was significantly worse. A Prather catheter was placed for urinary retention multiple blood clots were removed now he is getting continuous irrigation. Overall he is feeling a bit better. He reports that he has previously had some blood in his urine after riding the exercise bike in the past but nothing like today. Patient denies any more abdominal pain nausea vomiting fevers or other symptoms. He also has a very remote history of prostate cancer from over 20 years ago Related Data Previous Rx's Medication Instructions Recorded cephalexin 500 mg capsule 500 mg PO BID 7 Days #14 cap 12/06/21 cephalexin 500 mg capsule 500 mg PO BID 7 Days #14 cap 12/06/21 Allergies Allergy/AdvReac Type Severity Reaction Status Date / Time No Known Drug Allergies Allergy Verified 12/20/19 13:08 Review of Systems Review of Systems Narrative: GENERAL: Denies chills, fatigue, malaise, fever, sweats, travel HEENT: Denies sinus pain, ear pain, sore throat, difficulty swallowing, neck pain RESPIRATORY: Denies dyspnea, cough, wheezing, hemoptysis, sputum. CARDIOVASCULAR: Denies chest pain, palpitations, orthopnea, edema GASTROINTESTINAL: Denies nausea, vomiting, abdominal pain, diarrhea, constipation, melena. : See HPI MUSCULOSKELETAL: Denies weakness, joint pain, or bony pain SKIN: No rash, no erythema, no pruritus NEUROLOGIC: Denies weakness, dizziness, headache, numbness, change in speech, confusion PSYCHIATRIC: No concerning psychosocial issues. 12 point review of systems is negative except for those stated above and HPI Patient History Medical History Minor head injury without loss of consciousness Social History lives independently: Yes Smoking Status: Never smoker Smoking Status: Never smoker Substance Use Type: does not use Exam Initial Vital Signs Initial Vital Signs: Vital Signs Pulse Rate 55 L 12/06/21 07:15 Respiratory Rate 18 12/06/21 07:15 Blood Pressure 186/82 H 12/06/21 07:15 Pulse Oximetry 99 12/06/21 07:15 GENERAL: Alert 86-year-old male in no acute distress. HEENT: Head atraumatic,EOMI, pupils reactive, face symmetric, moist mucous membranes CARDIOVASCULAR: Regular rate and rhythm without murmurs, rubs or gallops. RESPIRATORY: Breath sounds equal bilaterally, no wheezes rales or rhonchi. ABDOMEN: Soft, nontender. Normoactive bowel sounds all 4 quadrants. No guarding or rebound. : Prather catheter in place being irrigated EXTREMITIES: Normal range of motion, no clubbing or edema. Neurovascularly intact NEUROLOGICAL: Alert and oriented x4 SKIN: Warm, dry, no laceration, no petechiae, no rashes or lesions. Course Orders Ordered: ED Orders 12/06/21 14:35 CBC Auto Diff [Complete Blood Count AUTO DIFF] Stat CMP [Comprehensive Metabolic Panel] Stat PTT [Partial Thromboplastin Time] Stat Prothrombin Time INR Stat Discontinued Medications Acetaminophen (Acetaminophen 325 Mg Tablet) 650 mg PO NOW ONE Stop: 12/06/21 13:44 Last Admin: 12/06/21 13:52 Dose: 650 mg Documented by: TAWANA Ceftriaxone Sodium 1,000 mg/ (Sodium Chloride) 100 mls @ 200 mls/hr IV NOW ONE Stop: 12/06/21 14:26 Last Infusion: 12/06/21 15:30 Dose: 0 mls/hr Documented by: Admin: 12/06/21 14:49 Dose: 200 mls/hr Documented by: TAWANA Vital Signs Vital signs: Vital Signs - 8 hr 12/06/21 13:28 12/06/21 13:30 12/06/21 14:00 Pulse Rate 51 L 51 L 53 L Respiratory Rate 20 Blood Pressure 139/65 Pulse Oximetry 100 100 97 12/06/21 14:10 12/06/21 14:30 12/06/21 14:52 Pulse Rate 53 L 52 L 51 L Respiratory Rate 20 Blood Pressure 133/79 150/70 H Pulse Oximetry 95 99 99 12/06/21 15:00 12/06/21 15:30 12/06/21 16:00 Pulse Rate 49 L 50 L 48 L Respiratory Rate 20 Blood Pressure Pulse Oximetry 99 100 99 12/06/21 16:44 12/06/21 16:45 Pulse Rate 53 L Respiratory Rate 20 Blood Pressure 121/58 L Pulse Oximetry 95 96 MDM - Male Genitourinary Lab Data Result diagrams: 12/06/21 14:35 12/06/21 14:35 Labs: Lab Results 12/06/21 12/06/21 12/06/21 Range/Units 07:55 14:35 14:35 WBC 11.1 H (4.5-11.0) X10^3/uL RBC 3.49 L (4.5-5.9) X10^6/uL Hgb 11.0 L (13.5-17.5) g/dL Hct 32.4 L (41-53) % MCV 92.7 (80-100) fL MCH 31.6 (26-34) PG MCHC 34.0 (30-36) % RDW 13.8 (11.6-14.8) % Plt Count 215 (150-400) X10^3/uL Neut % (Auto) 75.0 (50-75) % Lymph % (Auto) 15.0 L (25-40) % [place] % (Auto) 8.6 (3-14) % Eos % (Auto) 1.1 L (2-4) % Baso % (Auto) 0.3 (0-2) % Neut # (Auto) 8300 H (4661-6796) /uL Lymph # (Auto) 1700 (2394-2741) /uL [place] # (Auto) 900 (0-900) /uL Eos # (Auto) 100 (0-450) /uL Baso # (Auto) 0 (0-100) /uL PT 14.5 H (10.1-12.7) SECONDS INR 1.3 (0.9-1.3) APTT 31 (26.4-36.2) SECONDS Sodium (137-145) mmol/L Potassium (3.4-5.1) mmol/L Chloride (98-107) mmol/L Carbon Dioxide (22-32) mmol/L BUN (9-20) mg/dL Creatinine (0.66-1.25) mg/dL Estimated GFR (>60) mL/min BUN/Creatinine Ratio (6-22) Glucose (80-110) mg/dL Calcium (8.4-10.2) mg/dL Total Bilirubin (0.2-1.3) mg/dL AST (17-59) IU/L ALT (<50) IU/L Alkaline Phosphatase (38-126) U/L Total Protein (6.3-8.2) g/dL Albumin (3.5-5.0) g/dL Globulin (1.7-4.1) g/dL Albumin/Globulin Ratio (1.0-2.8) Urine Color Red Urine Appearance Turbid Urine pH 7.0 (4.5-8.0) Ur Specific [place] 1.020 (1.000-1.035) Urine Protein 3+ H (Negative) Urine Glucose (UA) Trace H (Negative) g/dL Urine Ketones Trace H (NEGATIVE) Urine Occult Blood 3+ H (Negative) Urine Nitrate Positive H (Negative) Urine Bilirubin Negative (NEGATIVE) Urine Urobilinogen 1.0 (0.2) E.U./dL Ur Leukocyte Esterase 1+ H (NEGATIVE) Urine RBC >100/hpf H (0-5/HPF) Urine WBC 5-10/hpf H (0-5/HPF) Ur Squamous Epith Cells 0-1 /hpf (0-5/HPF) Urine Bacteria Many (>30) H (None) Ur Culture Indicated? Specimen cultured 12/06/21 Range/Units 14:35 WBC (4.5-11.0) X10^3/uL RBC (4.5-5.9) X10^6/uL Hgb (13.5-17.5) g/dL Hct (41-53) % MCV (80-100) fL MCH (26-34) PG MCHC (30-36) % RDW (11.6-14.8) % Plt Count (150-400) X10^3/uL Neut % (Auto) (50-75) % Lymph % (Auto) (25-40) % [place] % (Auto) (3-14) % Eos % (Auto) (2-4) % Baso % (Auto) (0-2) % Neut # (Auto) (9529-8481) /uL Lymph # (Auto) (1461-6232) /uL [place] # (Auto) (0-900) /uL Eos # (Auto) (0-450) /uL Baso # (Auto) (0-100) /uL PT (10.1-12.7) SECONDS INR (0.9-1.3) APTT (26.4-36.2) SECONDS Sodium 133 L (137-145) mmol/L Potassium 4.0 (3.4-5.1) mmol/L Chloride 100 (98-107) mmol/L Carbon Dioxide 27 (22-32) mmol/L BUN 20 (9-20) mg/dL Creatinine 0.69 (0.66-1.25) mg/dL Estimated GFR > 60 (>60) mL/min BUN/Creatinine Ratio 29.0 H (6-22) Glucose 96 (80-110) mg/dL Calcium 8.5 (8.4-10.2) mg/dL Total Bilirubin 1.9 H (0.2-1.3) mg/dL AST 33 (17-59) IU/L ALT 7 (<50) IU/L Alkaline Phosphatase 72 (38-126) U/L Total Protein 6.7 (6.3-8.2) g/dL Albumin 3.9 (3.5-5.0) g/dL Globulin 2.8 (1.7-4.1) g/dL Albumin/Globulin Ratio 1.4 (1.0-2.8) Urine Color Urine Appearance Urine pH (4.5-8.0) Ur Specific [place] (1.000-1.035) Urine Protein (Negative) Urine Glucose (UA) (Negative) g/dL Urine Ketones (NEGATIVE) Urine Occult Blood (Negative) Urine Nitrate (Negative) Urine Bilirubin (NEGATIVE) Urine Urobilinogen (0.2) E.U./dL Ur Leukocyte Esterase (NEGATIVE) Urine RBC (0-5/HPF) Urine WBC (0-5/HPF) Ur Squamous Epith Cells (0-5/HPF) Urine Bacteria (None) Ur Culture Indicated? MDM Narrative Medical decision making narrative: Patient had multiple L of fluid irrigated. Initially clears and min recall. 12:19 Dr. Seals Urology as updated patient's symptoms test results recommend a [address]ather catheter irrigation with sterile water not normal saline walking Eliquis stopping riding his bike and follow-up in clinic Patient continued to be irrigated but continued to have multiple clots. The nursing staff finally switched to sterile water and clots seem to stop liquid was light pink and clear. Blood work was done mild anemia from previous blood work but otherwise stable. Patient is given urology recommendations and instructions. Discharge Plan Departure Patient Disposition: Home Clinical Impression: Acute UTI, Hematuria Instructions: How to Care for Your Prather Catheter -- Male, DI for Hematuria Activity Restrictions/Additional Instructions: *You have been diagnosed with hematuria and UTI *What to do: At this time please monitor catheter. Be sure that you can see through the tube, light pink is okay. Keep Prather in for about 1 week. It can be removed by her primary care provider or urologist. There is also infection. It continue to hydrate to help flush out Recommend that you stop riding her stationary bicycle, for now. Mild walking is okay *Continue to take medications as directed Keflex 500 mg twice a day for 7 days--> SENT TO [facility] until seen by Urology or your PCP *Follow up with your primary care provider in 2-3 days or call [phone] Called and follow-up with Dr. Seals, call tomorrow for appointment in 1-2 weeks *Return to ER if you should have increased abdominal pain, Prather catheter not working, pure blood, fever confusion orany new, worsening or concerning symptoms Prescriptions: New cephalexin 500 mg capsule 500 mg PO BID 7 Days Qty: 14 0RF cephalexin 500 mg capsule 500 mg PO BID 7 Days Qty: 14 0RF Referrals: Vega Song MD [Primary Care Provider] - Lloyd Seals MD [Physician] -
--- NOTE | 2021-12-06 12:08 | PC.NURSE ---
pt received 3.5 bags of CBI. clamped per Dr. Koehler and pt developed a clot that blocked the flow of urine. manually flushed and restarted CBI by Delvis Casas.
--- NOTE | 2021-12-06 13:16 | PC.NURSE ---
New [address] dawkins placed under sterile technique. 16f cath removed. New dawkins placed per Dr. Seals. Pt is having large clots.
[2021-12-06] MEDS: ACETAMINOPHEN 325 MG TABLET 650 MG PO (13:52)
[2021-12-06 14:43] LABS: Add Manual Diff / Slide Review NO; Basophils Absolute Auto 0 /uL (0-100); Basophils Percent Auto 0.3 % (0-2); Eosinophils Absolute Auto 100 /uL (0-450); Eosinophils Percent Auto 1.1 % (2-4); Hematocrit 32.4 % (41-53); Lymphocytes Absolute Auto 1700 /uL (1100-4500); Mean Corpuscular Hemoglobin 31.6 PG (26-34); Mean Corpuscular Volume 92.7 fL (80-100); Monocytes Absolute Auto 900 /uL (0-900); Monocytes Percent Auto 8.6 % (3-14); Neutrophils Absolute Auto 8300 /uL (1500-7000); Platelet Count 215 X10^3/uL (150-400); Red Blood Cell Count 3.49 X10^6/uL (4.5-5.9); Red Cell Distribution Width 13.8 % (11.6-14.8); White Blood Cell Count 11.1 X10^3/uL (4.5-11.0)
[2021-12-06] MEDS: cefTRIAXone 1,000 MG in SODIUM CHLORIDE 0.9% 100 ML 200 ML IV (14:49)
[2021-12-06 14:51] LABS: INR 1.3 (0.9-1.3); Prothrombin Time 14.5 SECONDS (10.1-12.7)
[2021-12-06 14:54] LABS: PTT Partial Thromboplastin Tim 31 SECONDS (26.4-36.2)
[2021-12-06 14:56] LABS: Alanine Aminotransferase 7 IU/L (<50); Albumin 3.9 g/dL (3.5-5.0); Albumin Globulin Ratio 1.4 (1.0-2.8); Alkaline Phosphatase 72 U/L (38-126); Aspartate Aminotransferase 33 IU/L (17-59); Bilirubin Total 1.9 mg/dL (0.2-1.3); Blood Urea Nitrogen 20 mg/dL (9-20); Calcium 8.5 mg/dL (8.4-10.2); Carbon Dioxide 27 mmol/L (22-32); Chloride 100 mmol/L (98-107); Estimated Glomerular Filt Rate > 60 mL/min (>60); Globulin 2.8 g/dL (1.7-4.1); Glucose 96 mg/dL (80-110); HEMOLYSIS < 15 (0-50); Sodium 133 mmol/L (137-145); Total Protein 6.7 g/dL (6.3-8.2)
--- NOTE | 2021-12-06 17:31 | PC.NURSE ---
reviewed extensively with patient and dawkins care, leg bag and changing to the larger dawkins bag at night. verbalized an understanding.
== END 2021-12-06 17:15 | disposition home or self-care (01) ==
PROVIDERS: Emergency Provider Emergency Medicine; Family Provider Internal Medicine; PCP Internal Medicine
DX: N39.0 Urinary tract infection, site not specified (principal); R31.9 Hematuria, unspecified; Z46.6 Encounter for fitting and adjustment of urinary device; Z79.01 Long term (current) use of anticoagulants; Z96.0 Presence of urogenital implants
CPT/HCPCS: 36415; 51798; 80053; 81001; 85025; 85610; 85730; 87077; 87086; 87186; 96365; 99284; J0696

== ENCOUNTER 2021-12-13 08:32 | Emergency (ER) | payer MEDICARE, SELFPAY ==
[2021-12-13] VITALS (9 sets, daily range): BP systolic 160–164; BP diastolic 70–74; PULSE 49–88; RESP 16–18; O2SAT 98–100
--- NOTE | 2021-12-13 11:24 | PC.NURSE ---
pt reports no clots in [address] dawkins since last here about 1 week ago
[2021-12-13 11:41] LABS: Appearance Urine UA CLEAR; Bilirubin Urine UA NEGATIVE (NEGATIVE); Color Urine UA YELLOW; Glucose Urine UA TRACE g/dL (Negative); Ketones Urine UA NEGATIVE (NEGATIVE); Leukocyte Esterase Urine UA NEGATIVE (NEGATIVE); Nitrite Urine UA NEGATIVE (Negative); Occult Blood Urine UA 1+ (Negative); Protein Urine UA TRACE (Negative); Urobilinogen Urine UA 0.2 E.U./dL (0.2)
[2021-12-13 11:58] LABS: Bacteria Urine Few (2-10); Culture Indicated Urine Cult Not Indicated; RBC Urine 0-1/HPF (0-5/HPF); WBC Urine 0-1/HPF (0-5/HPF)
--- NOTE | 2021-12-13 12:55 | ED_ITS ---
HPI - Male Genitourinary <Bubba Reid PA-C - Last Filed: 12/13/21 19:44> General Chief complaint: Urogenital-Male Stated complaint: remove catheter Time Seen by Provider: 12/13/21 12:07 Source: patient Mode of arrival: Ambulatory History of Present Illness HPI Narrative: Patient is an 86-year-old male presenting to the emergency department today requesting Prather catheter removal. Patient explains that he was seen in the emergency department on 12/06/2021 for hematuria. A Prather catheter was placed during that visit and clots were removed, patient was instructed to keep the catheter in place for 1 week and to ensure that his urine draining was clear in free of adeline blood. He explains he would like to have the catheter removed as his urine has been draining well without any signs of blood. He explains that he has the continue sensation of having to urinate with a catheter in and explains that he is unable to visit with his urologist until next week. He denies fever, chills, chest pain, cough, shortness of breath, nausea, vomiting, diarrhea, constipation, abdominal pain, hematuria, or any other concerning symptoms. No further concerns were voiced at this time. Related Data Previous Rx's Medication Instructions Recorded phenazopyridine 200 mg tablet 200 mg PO TID PRN #20 tab 12/13/21 (Pyridium) Allergies Allergy/AdvReac Type Severity Reaction Status Date / Time No Known Drug Allergies Allergy Verified 12/20/19 13:08 Review of Systems <Bubba Reid PA-C - Last Filed: 12/13/21 19:44> Constitutional Constitutional: Denies chills, Denies fatigue, Denies fever(s), Denies frequent falls, Denies lethargy and Denies weakness Eyes Eyes: Denies loss of vision ENT Ears, Nose, Mouth, and Throat: Denies dizziness and Denies neck pain Cardiovascular Cardiovascular: Denies chest pain, Denies irregular heart rhythm, Denies lighthe adedness, Denies palpitations, Denies dyspnea, Denies dyspnea on exertion and Denies orthopnea Respiratory Respiratory: Denies cough, Denies dyspnea, Denies dyspnea on exertion and Denies wheezing Gastrointestinal Gastrointestinal: Denies abdominal pain, Denies change in bowel habits, Denies diarrhea, Denies nausea and Denies vomiting Genitourinary Genitourinary: Denies hematuria, Denies flank pain, Denies urinary incontinence, Denies urinary urgency and Reports other (Prather catheter in place) Musculoskeletal Musculoskeletal: Denies back pain, Denies muscle weakness, Denies neck pain, Denies numbness and Denies tingling Integumentary/Breasts Skin/Breast: Denies pruritus, Denies erythema, Denies rash and Denies wounds Neurologic Neurologic: Denies behavioral changes, Denies confusion, Denies dizziness, Denies frequent falls, Denies loss of vision, Denies numbness, Denies tingling and Denies weakness Psychiatric Psychiatric: Denies behavioral changes and Denies confusion Endocrine Endocrine: Denies fatigue and Denies palpitations Allergic/Immunologic Allergic/Immunologic: Denies wheezing Patient History <Bubba Reid PA-C - Last Filed: 12/13/21 19:44> Medical History Minor head injury without loss of consciousness Social History lives independently: Yes Smoking Status: Never smoker Smoking Status: Never smoker Substance Use Type: does not use Exam <Bubba Reid PA-C - Last Filed: 12/13/21 19:44> Narrative Exam Narrative: GENERAL: Pleasant 86 year old patient appears stated age. Well-developed patient, in no acute distress. HEAD: Atraumatic. Normocephalic. EYES: Pupils equal round and reactive. Extraocular motions intact. No scleral icterus. No injection or drainage. ENT: Nose without bleeding, purulent drainage. Throat without erythema, tonsillar hypertrophy or exudate. Airway patent. NECK: Trachea midline. Non tender CARDIOVASCULAR: Regular rate and rhythm without murmurs, gallops, or rubs. RESPIRATORY: Clear to auscultation. Breath sounds equal bilaterally. No wheezes, rales, or rhonchi. GASTROINTESTINAL: Abdomen soft, non-tender, nondistended. EXTREMITIES: No edema or joint tenderness. BACK: Nontender without deformity or crepitance. No flank tenderness. NEURO: AOx3. SKIN: No rash or erythema of visible areas GENITOURINARY: Prather catheter in place draining urine without any signs adeline hematuria. Initial Vital Signs Initial Vital Signs: Vital Signs Pulse Rate 50 L 12/13/21 11:27 Respiratory Rate 18 12/13/21 11:27 Pulse Oximetry 100 12/13/21 11:27 Course <Bubba Reid PA-C - Last Filed: 12/13/21 19:44> Course Course Narrative: I discussed plan to remove the catheter in the emergency department for the patient. I informed patient that I would be unwilling to discharge him from the emergency room until he is able to void. I discussed plan to have the catheter reinserted if he is unable to void in the emergency department. Patient is able to produce only 50 cc of urine after catheter was removed. Discussion was had with patient and his hand they felt it was most appropriate to reach catheterized considering that they [place] and would have difficulty returning to the emergency department if the patient experience further episodes of urinary retention. Orders Ordered: Discontinued Medications Lidocaine HCl (Lidocaine 2% (Glydo) 6 Ml Gel) 6 ml TOP NOW ONE Stop: 12/13/21 16:16 Last Admin: 12/13/21 16:41 Dose: 6 ml Documented by: CHARLENE Phenazopyridine HCl (Phenazopyridine 100 Mg Tablet) 200 mg PO NOW ONE Stop: 12/13/21 16:36 Last Admin: 12/13/21 16:41 Dose: 200 mg Documented by: CHARLENE Vital Signs Vital signs: Vital Signs - 8 hr 12/13/21 13:30 12/13/21 15:00 12/13/21 16:35 Pulse Rate 55 L 88 54 L Respiratory Rate 18 18 18 Blood Pressure 160/70 H Pulse Oximetry 98 12/13/21 16:36 12/13/21 16:46 Pulse Rate 52 L 53 L Respiratory Rate 16 Blood Pressure 164/74 H 164/74 H Pulse Oximetry 99 99 MDM - Male Genitourinary <Bubba Reid PA-C - Last Filed: 12/13/21 19:44> Lab Data Labs: Lab Results 12/13/21 Range/Units 11:24 Urine Color Yellow Urine Appearance Clear Urine pH 6.0 (4.5-8.0) Ur Specific [place] 1.020 (1.000-1.035) Urine Protein Trace H (Negative) Urine Glucose (UA) Trace H (Negative) g/dL Urine Ketones Negative (NEGATIVE) Urine Occult Blood 1+ H (Negative) Urine Nitrate Negative (Negative) Urine Bilirubin Negative (NEGATIVE) Urine Urobilinogen 0.2 (0.2) E.U./dL Ur Leukocyte Esterase Negative (NEGATIVE) Urine RBC 0-1/hpf D (0-5/HPF) Urine WBC 0-1/hpf (0-5/HPF) Urine Bacteria Few (2-10) H (None) Ur Culture Indicated? Cult not indicated MDM Narrative Medical decision making narrative: Differential diagnosis to consider but not limited to urinary tract infection versus hematuria versus urinary retention. I discussed plan with patient to keep the urinary catheter in place as he has been experiencing difficulty producing greater than 50 cc of urine since being in the emergency department. He states he would feel most comfortable being sent home with a catheter in place as he lives on the [facility] and would have difficulty returning if he were unable to void. Patient was catheterized prior to discharge and was provided with a prescription for peridium. I urged the patient to follow-up with urology for his appointment this upcoming Friday. Patient expresses understanding and agrees to plan. Strict return precautions were discussed with the patient prior to discharge. Discharge Plan Departure Patient Disposition: Home Clinical Impression: Acute urinary retention Instructions: DI for Urinary Retention in Men Activity Restrictions/Additional Instructions: *You have been diagnosed with urinary retention *What to do: *Please continue to take your regular medications as directed. [X] New medication prescriptions sent to your pharmacy: [facility] - Pyridium [ ] New medication written as a paper prescription [ ] No new medications given You were evaluated in the emergency department today for a urinary catheter removal. Following removal of the urinary catheter you or unable to produce more than approximately 50 cc of urine in the emergency department. In order to ensure that he did not experience significant urinary retention you were catheterized again prior to discharge. I recommend that you reach out to Dr. Seals's office prior to your appointment this Friday to discuss you most recent visit to the emergency department. Please follow-up with your primary care provider within the next 2-3 days for further evaluation. Do not hesitate to return to the emergency department if you experience worsening pain, fever, blockage of the catheter, or any other concerning symptoms. *Please follow up with your primary care provider in 2-3 days, call for an appointment. Let them know you were seen in the Emergency Department and that we ask that you be seen in follow up. We will electronically transmit a record of today's note if your PCP is in our system *If you do not have a primary care provider please contact the [facility] Resource line at [phone]. They will ask some questions about your medical history and help get you set up with a doctor in the community. *Return to Emergency Department if you should have any new, worsening or concerning symptoms, such as fever greater than 101 F, shaking chills, worsening pain, persistent vomiting or other bothersome symptoms. Prescriptions: New phenazopyridine [Pyridium] 200 mg tablet 200 mg PO TID PRN (Reason: pain) Qty: 20 0RF Referrals: Vega Song MD [Primary Care Provider] -
[2021-12-13] MEDS: PHENAZOPYRIDINE 100 MG TABLET 200 MG PO (16:41)
[2021-12-13] MEDS: LIDOCAINE 2% (GLYDO) 6 ML GEL TOP (16:41)
== END 2021-12-13 16:46 | disposition home or self-care (01) ==
PROVIDERS: Emergency Medicine; Emergency Provider Physician Assistant; Family Provider Internal Medicine; PCP Internal Medicine
DX: R33.9 Retention of urine, unspecified (principal); Z46.6 Encounter for fitting and adjustment of urinary device
CPT/HCPCS: 51702; 51798; 81001; 99283; 99284

== ENCOUNTER → 2021-12-19 13:10 | Outpatient (CLI) | payer MEDICARE, SELFPAY | PROVIDERS: Family Provider Internal Medicine; PCP Internal Medicine; Visit Provider Urology | DX: R30.0 Dysuria (principal) | CPT/HCPCS: 87086 ==

== ENCOUNTER → 2021-12-19 14:02 | Outpatient (CLI) | payer MEDICARE, SELFPAY ==
[2021-12-19 14:36] LABS: BUN Creatinine Ratio 18.2 (6-22); Blood Urea Nitrogen 16 mg/dL (9-20); Calcium 8.9 mg/dL (8.4-10.2); Carbon Dioxide 31 mmol/L (22-32); Chloride 104 mmol/L (98-107); Estimated Glomerular Filt Rate > 60 mL/min (>60); Glucose 90 mg/dL (80-110); HEMOLYSIS < 15 (0-50); Potassium 4.3 mmol/L (3.4-5.1); Sodium 140 mmol/L (137-145)
[2021-12-19 15:09] LABS: Prostate Specific Antigen < 0.064 ng/mL (0.10-4.00)
== END ==
PROVIDERS: Family Provider Internal Medicine; PCP Internal Medicine; Referring Provider Urology; Visit Provider Urology
DX: R31.0 Gross hematuria (principal); R33.8 Other retention of urine; R30.0 Dysuria; Z85.46 Personal history of malignant neoplasm of prostate; Z79.01 Long term (current) use of anticoagulants
CPT/HCPCS: 36415; 51798; 80048; 81002; 84153; 87086; 99214

== ENCOUNTER → 2021-12-25 09:05 | Outpatient (CLI) | payer MEDICARE, SELFPAY | PROVIDERS: Family Provider Internal Medicine; PCP Internal Medicine; Referring Provider Urology; Visit Provider Urology | DX: R30.0 Dysuria (principal) | CPT/HCPCS: 87086 ==

== ENCOUNTER → 2022-01-10 09:04 | Outpatient (CLI) | payer MEDICARE, SELFPAY ==
[2022-01-10 09:37] LABS: Hematocrit 33.9 % (41-53); Hemoglobin 11.5 g/dL (13.5-17.5); Mean Corpuscular Hemoglobin 30.7 PG (26-34); Mean Corpuscular Volume 90.3 fL (80-100); Platelet Count 260 X10^3/uL (150-400); Red Blood Cell Count 3.76 X10^6/uL (4.5-5.9); Red Cell Distribution Width 13.5 % (11.6-14.8); White Blood Cell Count 7.3 X10^3/uL (4.5-11.0)
[2022-01-10 10:06] LABS: HEMOLYSIS < 15 (0-50); Iron 38 ug/dL (49-181)
[2022-01-10 10:11] LABS: Alanine Aminotransferase 13 IU/L (<50); Albumin 4.3 g/dL (3.5-5.0); Albumin Globulin Ratio 1.4 (1.0-2.8); Alkaline Phosphatase 83 U/L (38-126); Aspartate Aminotransferase 43 IU/L (17-59); BUN Creatinine Ratio 31.6 (6-22); Blood Urea Nitrogen 25 mg/dL (9-20); Calcium 9.2 mg/dL (8.4-10.2); Carbon Dioxide 26 mmol/L (22-32); Chloride 108 mmol/L (98-107); Estimated Glomerular Filt Rate > 60 mL/min (>60); Globulin 3.1 g/dL (1.7-4.1); Glucose 101 mg/dL (80-110); HEMOLYSIS < 15 (0-50); Potassium 4.4 mmol/L (3.4-5.1); Sodium 140 mmol/L (137-145); Total Protein 7.4 g/dL (6.3-8.2)
[2022-01-10 10:17] LABS: Percent Iron Saturation 10 % (20-50); Total Iron Binding Capacity 391 ug/dL (261-462); Transferrin 279 mg/dL (206-381)
[2022-01-10 10:40] LABS: TSH w/ Reflex to FT4 1.48 uIU/mL (0.47-4.68)
[2022-01-10 10:43] LABS: Ferritin 12 ng/mL (18-464)
[2022-01-10 10:57] LABS: Vitamin B12 239 pg/mL (239-931)
== END ==
PROVIDERS: Family Provider Internal Medicine; PCP Internal Medicine; Referring Provider Internal Medicine; Visit Provider Internal Medicine
DX: D64.9 Anemia, unspecified (principal); E53.8 Deficiency of other specified B group vitamins; I48.0 Paroxysmal atrial fibrillation
CPT/HCPCS: 36415; 80053; 82607; 82728; 83540; 83550; 84443; 85027

== ENCOUNTER 2022-01-14 11:12 | Emergency (ER) | payer MEDICARE, SELFPAY ==
[2022-01-14 11:31] VITALS: BP 191/83; PULSE 50; RESP 16; TEMP 36.6; O2SAT 100; BMI 22.4
[2022-01-14] MEDS: LIDOCAINE 2% (GLYDO) 6 ML GEL TOP (11:51)
--- NOTE | 2022-01-14 13:42 | ED_ITS ---
HPI - General Adult General Chief complaint: Urogenital-Male Stated complaint: Urinary blockage, referred by Time Seen by Provider: 01/14/22 12:05 Source: patient Mode of arrival: Ambulatory History of Present Illness HPI narrative: 86-year-old gentleman with a history of recurrent acute urinary retention this will be his at least 3rd Prather catheter replacement, atrial fibrillation anticoagulated on Eliquis, Parkinson's disease and hyperlipidemia who presents unable to void again. Initially went to the urology office but no providers were in office so instructed to come to the emergency department. Initial bladder scan was 600 cc. Patient was mildly uncomfortable but had no other specific complaints. He has had hematuria in the past he does not have any now. Related Data Home Medications Medication Instructions Recorded Confirmed amiodarone 200 mg tablet 200 mg PO DAILY 12/19/21 01/02/22 diphenhydramine 25 1 tab PO BEDTIME PRN 12/19/21 01/02/22 mg-acetaminophen 500 mg tablet (Tylenol PM Extra Strength) carbidopa 25 mg-levodopa 100 mg 1.5 tab PO TID tab 01/02/22 01/02/22 tablet Previous Rx's Medication Instructions Recorded apixaban 5 mg tablet (Eliquis) 5 mg PO BID #180 tab 01/02/22 atorvastatin 40 mg tablet 40 mg PO DAILY #90 tab 01/02/22 losartan 50 mg tablet 50 mg PO DAILY #30 tab 01/11/22 Allergies Allergy/AdvReac Type Severity Reaction Status Date / Time No Known Drug Allergies Allergy Verified 01/14/22 11:37 Review of Systems Review of Systems Narrative: No fevers, cough, palpitations, abdominal pain, headaches. Patient History Medical History Anemia Arthritis Chronic anticoagulation Cobalamin deficiency Do not resuscitate Essential hypertension History of malignant neoplasm of prostate Iron deficiency anemia Male circumcision Minor head injury without loss of consciousness Mixed hyperlipidemia Onychomycosis of right great toe Parkinsons disease Parkinsons disease Paroxysmal atrial fibrillation Prostate cancer Surgical History H/O hernia repair H/O vasectomy History of coronary artery stent placement History of prostate biopsy S/P TURP Family History Father CAD in [place] artery Social History marital status: number of children: 2 lives independently: Yes Smoking Status: Never smoker Type(s) of exercise: aerobic frequency: 3-4 times per week Smoking Status: Never smoker Substance Use Type: does not use Exam Initial Vital Signs Initial Vital Signs: Vital Signs Temperature 97.8 F 01/14/22 11:31 Pulse Rate 50 L 01/14/22 11:31 Respiratory Rate 16 01/14/22 11:31 Blood Pressure 191/83 H 01/14/22 11:31 Pulse Oximetry 100 01/14/22 11:31 General: Alert appropriate in no acute distress Respiratory: Able to speak in full sentences, no obvious respiratory distress Skin: No obvious rashes, warm and dry Neurologic: Grossly intact no obvious asymmetries or abnormalities Psych: appropriate insight and affect, cooperative Extremities: 1+ bilateral lower extremity edema Prather catheters placed with total of 1400 cc returned, no clots, yellow urine. Course Orders Ordered: Discontinued Medications Lidocaine HCl (Lidocaine 2% (Glydo) 6 Ml Gel) 6 ml TOP NOW ONE Stop: 01/14/22 11:45 Last Admin: 01/14/22 11:51 Dose: 6 ml Documented by: TIANNA Vital Signs Vital signs: Vital Signs - 8 hr 01/14/22 11:31 Temperature 97.8 F Pulse Rate 50 L Respiratory Rate 16 Blood Pressure 191/83 H Pulse Oximetry 100 Medical Decision Making Lab Data Labs: Urine Dip Bedside Urine Glucose Negative Bedside Urine Bilirubin - Negative Bedside Urine Ketone - Negative Urine Specific [place] 1.020 Bedside Urine Occult Blood +++ Bedside Urine pH 5.5 Bedside Urine Protein - Negative Bedside Urine Urobilinogen +/- 1mg Bedside Urine Nitrite - Negative Bedside Urine Leukocytes - Negative Esterase Point of care testing: Urine Dip Bedside Urine Glucose Negative Bedside Urine Bilirubin - Negative Bedside Urine Ketone - Negative Urine Specific [place] 1.020 Bedside Urine Occult Blood +++ Bedside Urine pH 5.5 Bedside Urine Protein - Negative Bedside Urine Urobilinogen +/- 1mg Bedside Urine Nitrite - Negative Bedside Urine Leukocytes - Negative Esterase MDM Narrative Medical decision making narrative: 86-year-old gentleman with recurrent episodes of acute urinary retention. 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 Is seeing Dr. Seals for continued workup. Continue outpatient workup includes a CT scan and cystoscopy. In the meantime Prather catheter is placed without difficulty today with 1400 cc of yellow urine return. Patient is feeling better. Will burst in Prather catheter care and placement. He is discharged home with leg bag and Prather catheter with instructions follow-up with Dr. Seals. Discharge Plan Departure Patient Disposition: Home Clinical Impression: Acute on chronic urinary retention Instructions: DI for Urinary Retention in Men Activity Restrictions/Additional Instructions: Thank you for coming in today Your Prather catheter was replaced. By the time you were discharged from the emergency department you had drained 1400 cc. There was no blood in your urine. There is no indication of urinary tract infection today. I recommend that you keep your Prather catheter in place until you have definitive plan for treatment in place worked out with Dr. Seals. I wish you the best Prescriptions: No Action losartan 50 mg tablet 50 mg PO DAILY Qty: 30 1RF carbidopa-levodopa 25-100 mg tablet 1.5 tab PO TID 0RF atorvastatin 40 mg tablet 40 mg PO DAILY Qty: 90 3RF Eliquis 5 mg tablet 5 mg PO BID Qty: 180 3RF amiodarone 200 mg tablet 200 mg PO DAILY 0RF diphenhydramine-acetaminophen [Tylenol PM Extra Strength] 25-500 mg tablet 1 tab PO BEDTIME [id number] Referrals: Vega Song MD [Primary Care Provider] -
[2022-01-14 14:30] VITALS: BP 193/88; PULSE 49; O2SAT 99
== END 2022-01-14 14:26 | disposition home or self-care (01) ==
PROVIDERS: Emergency Provider Emergency Medicine; Family Provider Internal Medicine; PCP Internal Medicine; Referring Provider Urology
DX: R31.9 Hematuria, unspecified (principal)
CPT/HCPCS: 51798; 81003; 99283

== ENCOUNTER → 2022-01-15 11:49 | Outpatient (CLI) | payer MEDICARE, SELFPAY ==
--- NOTE | 2022-01-15 11:51 | DI.CT.S_ITS ---
PROCEDURE: CT ABDOMEN PELVIS WO/W CON INDICATIONS: Gross hematuria, history of prostate cancer. History of prostate cancer, protein P radiation, TURP. TECHNIQUE: Before and after the administration of intravenous contrast, 2 mm thick sections acquired from the diaphragms to the symphysis. 5 mm thick coronal and sagittal reformats were acquired. For radiation dose reduction, the following was used: automated exposure control, adjustment of mA and/or kV according to patient size. COMPARISON: None. FINDINGS: Lower thorax: The lung bases are clear. Heart size normal. No hiatal hernia. Liver: Multiple node is the hepatic lesions measure up to 1.2 cm, likely reflect cyst. Biliary system: No calcified cholelithiasis or pericholecystic inflammation. No intra or extrahepatic bile duct dilatation. Pancreas: Unremarkable without mass or inflammation evident. Spleen: Normal in size and density. Adrenals: Normal morphology and density. Reproductive system: There is a 1.5 x 0.9 cm calculus in the penile urethra adjacent to a Prather catheter. Prostate is appropriate in size. Surgical TURP changes noted. Urinary system: Normal renal size and attenuation. A 3 cm left renal simple cortical cyst present. No renal calculi, hydronephrosis, or solid mass present. Prather catheter in the urinary bladder. Gastrointestinal system: Moderate fecal debris throughout the colon The bowel is unremarkable without evidence of bowel obstruction or inflammation. The stomach appears unremarkable. Multiple diverticula arise from the sigmoid colon without evidence of diverticulitis. Appendix: No findings to suggest acute appendicitis. Peritoneal spaces: No mesenteric or retroperitoneal adenopathy. No free air. No free fluid. Vasculature: Atherosclerotic calcification in the abdominal aorta noted without evidence of aneurysm. 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 Lower ventral herniorrhaphy noted with fasteners. Musculoskeletal: Normal bone mineralization. Degenerative disc disease and arthropathy noted in lower lumbar spine. No acute fractures. No lytic or blastic lesions IMPRESSION: 1. Urethral calcification measures 1.5 cm in the mid penile urethra. Prather catheter in place. 2. Prostate is appropriate in size. TURP surgical changes noted. 3. Moderate fecal debris throughout the colon without obstruction. Diverticulosis without evidence of diverticulitis. 4. Right external iliac artery fusiform aneurysm, 2.8 cm Approved by: Anam Kellogg M.D. on 01/15/2022 at 16:50
== END ==
PROVIDERS: Family Provider Internal Medicine; PCP Internal Medicine; Referring Provider Urology; Visit Provider Urology
DX: N21.1 Calculus in urethra (principal); R31.9 Hematuria, unspecified; N28.1 Cyst of kidney, acquired; I72.3 Aneurysm of iliac artery; K57.30 Diverticulosis of large intestine without perforation or abscess without bleeding; Z85.46 Personal history of malignant neoplasm of prostate
CPT/HCPCS: 74178; Q9967

== ENCOUNTER → 2022-02-12 08:41 | Outpatient (CLI) | payer MEDICARE, SELFPAY ==
[2022-02-15 08:11] LABS: Ca oxalate dihydrate 30 % (.); Ca oxalate monohydr 70 % (.); Size 11x9 mm (.)
[2022-02-22 12:01] LABS: Appearance Urine UA CLEAR; Bilirubin Urine UA NEGATIVE (NEGATIVE); Color Urine UA YELLOW; Glucose Urine UA NEGATIVE (Negative); Ketones Urine UA NEGATIVE (NEGATIVE); Leukocyte Esterase Urine UA TRACE (NEGATIVE); Nitrite Urine UA NEGATIVE (Negative); Occult Blood Urine UA 3+ (Negative); Protein Urine UA NEGATIVE (Negative); Urobilinogen Urine UA 0.2 E.U./dL (0.2)
[2022-02-22 12:05] LABS: Bacteria Urine None Seen; Culture Indicated Urine Specimen Cultured; RBC Urine 30-100/HPF (0-5/HPF); WBC Urine 0-1/HPF (0-5/HPF)
== END ==
PROVIDERS: Family Provider Internal Medicine; PCP Internal Medicine; Visit Provider Urology
DX: R30.0 Dysuria (principal); I48.0 Paroxysmal atrial fibrillation; R33.9 Retention of urine, unspecified; R31.0 Gross hematuria; N21.9 Calculus of lower urinary tract, unspecified; Z85.46 Personal history of malignant neoplasm of prostate
CPT/HCPCS: 51702; 81001; 82365; 87077; 87086; 87186; 99214

== ENCOUNTER → 2022-03-04 14:44 | Outpatient (CLI) | payer MEDICARE, SELFPAY ==
[2022-03-04 16:26] LABS: Hematocrit 33.9 % (41-53); Hemoglobin 11.6 g/dL (13.5-17.5); Mean Corpuscular HGB Conc 34.3 % (30-36); Mean Corpuscular Hemoglobin 30.7 PG (26-34); Mean Corpuscular Volume 89.6 fL (80-100); Platelet Count 214 X10^3/uL (150-400); Red Blood Cell Count 3.79 X10^6/uL (4.5-5.9); Red Cell Distribution Width 16.3 % (11.6-14.8); White Blood Cell Count 8.4 X10^3/uL (4.5-11.0)
[2022-03-04 17:18] LABS: Ferritin 23 ng/mL (18-464)
[2022-03-04 17:33] LABS: HEMOLYSIS < 15 (0-50); Iron 83 ug/dL (49-181)
[2022-03-04 17:45] LABS: Percent Iron Saturation 26 % (20-50); Total Iron Binding Capacity 315 ug/dL (261-462); Transferrin 241 mg/dL (206-381)
== END ==
PROVIDERS: Family Provider Internal Medicine; PCP Internal Medicine; Referring Provider Internal Medicine; Visit Provider Internal Medicine
DX: D64.9 Anemia, unspecified (principal)
CPT/HCPCS: 36415; 82728; 83540; 83550; 85027

== ENCOUNTER → 2022-03-21 09:49 | Outpatient (CLI) | payer MEDICARE, SELFPAY | PROVIDERS: Family Provider Internal Medicine; PCP Internal Medicine; Visit Provider Urology | DX: N21.1 Calculus in urethra (principal); N39.498 Other specified urinary incontinence; R30.0 Dysuria; R31.0 Gross hematuria; Z85.46 Personal history of malignant neoplasm of prostate; Z79.01 Long term (current) use of anticoagulants; Z87.898 Personal history of other specified conditions | CPT/HCPCS: 51798; 87086; 99214 ==

== ENCOUNTER → 2022-03-26 15:20 | Outpatient (CLI) | payer MEDICARE, SELFPAY ==
[2022-03-26 16:20] LABS: Appearance Urine UA SL CLOUDY; Bilirubin Urine UA NEGATIVE (NEGATIVE); Color Urine UA YELLOW; Glucose Urine UA NEGATIVE (Negative); Ketones Urine UA TRACE (NEGATIVE); Leukocyte Esterase Urine UA TRACE (NEGATIVE); Nitrite Urine UA NEGATIVE (Negative); Occult Blood Urine UA 1+ (Negative); Protein Urine UA 1+ (Negative); Specific Gravity Urine UA 1.025 (1.000-1.035); Urobilinogen Urine UA 0.2 E.U./dL (0.2)
[2022-03-26 16:31] LABS: Amorphous Sediment Urine 1+; Bacteria Urine Few (2-10); Culture Indicated Urine Specimen Cultured; Mucus Urine 1+ (Negative); RBC Urine 1-5/HPF (0-5/HPF); Squamous Epithelial Cell Urine 0-1 /HPF (0-5/HPF); WBC Urine 30-100/HPF (0-5/HPF)
== END ==
PROVIDERS: Family Provider Internal Medicine; PCP Internal Medicine; Referring Provider Urology; Visit Provider Urology
DX: R30.0 Dysuria (principal)
CPT/HCPCS: 81001; 87086

== ENCOUNTER → 2022-04-10 15:08 | Outpatient (CLI) | payer MEDICARE, SELFPAY ==
[2022-04-10 16:24] LABS: Hematocrit 34.9 % (41-53); Hemoglobin 12.1 g/dL (13.5-17.5); Mean Corpuscular HGB Conc 34.7 % (30-36); Mean Corpuscular Volume 89.4 fL (80-100); Platelet Count 212 X10^3/uL (150-400); Red Blood Cell Count 3.91 X10^6/uL (4.5-5.9); Red Cell Distribution Width 16.6 % (11.6-14.8); White Blood Cell Count 8.6 X10^3/uL (4.5-11.0)
[2022-04-10 16:28] LABS: Appearance Urine UA CLOUDY; Bilirubin Urine UA NEGATIVE (NEGATIVE); Color Urine UA YELLOW; Glucose Urine UA NEGATIVE (Negative); Ketones Urine UA 1+ (NEGATIVE); Leukocyte Esterase Urine UA 1+ (NEGATIVE); Nitrite Urine UA NEGATIVE (Negative); Occult Blood Urine UA 3+ (Negative); Protein Urine UA 2+ (Negative); Specific Gravity Urine UA 1.025 (1.000-1.035); Urobilinogen Urine UA 0.2 E.U./dL (0.2)
[2022-04-10 16:49] LABS: Amorphous Sediment Urine 1+; Bacteria Urine Occasional (0-1); Culture Indicated Urine Specimen Cultured; RBC Urine 5-10/HPF (0-5/HPF); WBC Urine 5-10/HPF (0-5/HPF)
[2022-04-10 16:51] LABS: Calcium Oxalate Crystals Urine Moderate
[2022-04-12 20:11] LABS: Fecal Immunochemical Test Negative (Negative)
== END ==
PROVIDERS: Urology; Family Provider Internal Medicine; PCP Internal Medicine; Referring Provider Internal Medicine; Visit Provider Internal Medicine
DX: D50.9 Iron deficiency anemia, unspecified (principal); E53.8 Deficiency of other specified B group vitamins; N21.1 Calculus in urethra; R31.0 Gross hematuria; R32 Unspecified urinary incontinence; Z87.898 Personal history of other specified conditions
CPT/HCPCS: 36415; 81001; 82274; 85027; 87086

== ENCOUNTER → 2022-08-02 10:31 | Outpatient (CLI) | payer MEDICARE, SELFPAY ==
[2022-08-02 12:14] LABS: Hematocrit 39.1 % (41-53); Hemoglobin 13.3 g/dL (13.5-17.5); Mean Corpuscular HGB Conc 34.1 % (30-36); Mean Corpuscular Hemoglobin 32.4 PG (26-34); Mean Corpuscular Volume 95.2 fL (80-100); Platelet Count 258 X10^3/uL (150-400); Red Blood Cell Count 4.11 X10^6/uL (4.5-5.9); Red Cell Distribution Width 13.7 % (11.6-14.8); White Blood Cell Count 8.6 X10^3/uL (4.5-11.0)
[2022-08-02 12:55] LABS: BUN Creatinine Ratio 26.8 (6-22); Blood Urea Nitrogen 19 mg/dL (9-20); Carbon Dioxide 27 mmol/L (22-32); Chloride 105 mmol/L (98-107); Estimated Glomerular Filt Rate > 60 mL/min (>60); Glucose 76 mg/dL (80-110); HEMOLYSIS 29 (0-50); Potassium 4.6 mmol/L (3.4-5.1); Sodium 141 mmol/L (137-145)
[2022-08-02 12:56] LABS: HEMOLYSIS < 15 (0-50); Iron 164 ug/dL (49-181)
[2022-08-02 13:08] LABS: Percent Iron Saturation 50 % (20-50); Total Iron Binding Capacity 330 ug/dL (261-462); Transferrin 248 mg/dL (206-381)
[2022-08-02 13:27] LABS: Ferritin 36 ng/mL (18-464)
[2022-08-02 13:41] LABS: Vitamin B12 342 pg/mL (239-931)
== END ==
PROVIDERS: Family Provider Internal Medicine; PCP Internal Medicine; Referring Provider Internal Medicine; Visit Provider Internal Medicine
DX: D50.9 Iron deficiency anemia, unspecified (principal); E53.8 Deficiency of other specified B group vitamins; I10 Essential (primary) hypertension
CPT/HCPCS: 36415; 80048; 82607; 82728; 83540; 83550; 85027

== ENCOUNTER → 2023-01-02 12:03 | Outpatient (CLI) | payer MEDICARE, SELFPAY ==
[2023-01-02 12:51] LABS: Hematocrit 40.2 % (41-53); Hemoglobin 13.9 g/dL (13.5-17.5); Mean Corpuscular HGB Conc 34.7 % (30-36); Mean Corpuscular Hemoglobin 32.2 PG (26-34); Mean Corpuscular Volume 93.1 fL (80-100); Platelet Count 247 X10^3/uL (150-400); Red Blood Cell Count 4.32 X10^6/uL (4.5-5.9); Red Cell Distribution Width 13.4 % (11.6-14.8); White Blood Cell Count 9.4 X10^3/uL (4.5-11.0)
[2023-01-02 13:14] LABS: HEMOLYSIS < 15 (0-50); Iron 92 ug/dL (49-181)
[2023-01-02 13:27] LABS: Percent Iron Saturation 28 % (20-50); Total Iron Binding Capacity 323 ug/dL (261-462); Transferrin 227 mg/dL (206-381)
[2023-01-02 13:48] LABS: Ferritin 64 ng/mL (18-464)
[2023-01-02 14:03] LABS: Vitamin B12 338 pg/mL (239-931)
== END ==
PROVIDERS: Family Provider Internal Medicine; PCP Internal Medicine; Referring Provider Internal Medicine; Visit Provider Internal Medicine
DX: D50.9 Iron deficiency anemia, unspecified (principal); E53.8 Deficiency of other specified B group vitamins
CPT/HCPCS: 36415; 82607; 82728; 83540; 83550; 85027

== ENCOUNTER → 2023-05-15 10:48 | Outpatient (CLI) | payer MEDICARE, SELFPAY ==
[2023-05-15 11:34] LABS: Mean Corpuscular HGB Conc 34.2 % (30-36); Mean Corpuscular Hemoglobin 32.4 PG (26-34); Mean Corpuscular Volume 94.6 fL (80-100); Platelet Count 233 X10^3/uL (150-400); Red Blood Cell Count 4.02 X10^6/uL (4.5-5.9); Red Cell Distribution Width 13.4 % (11.6-14.8); White Blood Cell Count 9.1 X10^3/uL (4.5-11.0)
[2023-05-15 11:47] LABS: HEMOLYSIS < 15 (0-50); Iron 85 ug/dL (49-181)
[2023-05-15 11:51] LABS: Alanine Aminotransferase 22 IU/L (<50); Albumin 4.1 g/dL (3.5-5.0); Albumin Globulin Ratio 1.4 (1.0-2.8); Alkaline Phosphatase 82 U/L (38-126); Aspartate Aminotransferase 31 IU/L (17-59); Bilirubin Total 1.4 mg/dL (0.2-1.3); Blood Urea Nitrogen 20 mg/dL (9-20); Calcium 9.7 mg/dL (8.4-10.2); Carbon Dioxide 27 mmol/L (22-32); Chloride 105 mmol/L (98-107); Cholesterol 123 mg/dL (140-199); Estimated Glomerular Filt Rate > 60 mL/min (>60); Glucose 84 mg/dL (80-110); HDL Cholesterol 46 mg/dL (40-60); HEMOLYSIS < 15 (0-50); LDL Cholesterol Calculated 61 mg/dL (<100); Potassium 4.6 mmol/L (3.4-5.1); Sodium 138 mmol/L (137-145); Total Protein 7.1 g/dL (6.3-8.2); Triglycerides 82 mg/dL (35-150)
[2023-05-15 11:58] LABS: Percent Iron Saturation 29 % (20-50); Total Iron Binding Capacity 293 ug/dL (261-462); Transferrin 199 mg/dL (206-381)
[2023-05-15 12:22] LABS: Ferritin 85 ng/mL (18-464)
== END ==
PROVIDERS: Family Provider Internal Medicine; PCP Internal Medicine; Referring Provider Internal Medicine; Visit Provider Internal Medicine
DX: D50.9 Iron deficiency anemia, unspecified (principal); E78.2 Mixed hyperlipidemia; I48.0 Paroxysmal atrial fibrillation
CPT/HCPCS: 36415; 80053; 80061; 82728; 83540; 83550; 85027

== ENCOUNTER → 2023-10-23 14:26 | Outpatient (CLI) | payer MEDICARE, SELFPAY ==
[2023-10-23 16:00] LABS: Alanine Aminotransferase 13 IU/L (<50); Albumin 4.2 g/dL (3.5-5.0); Albumin Globulin Ratio 1.3 (1.0-2.8); Alkaline Phosphatase 83 U/L (38-126); Aspartate Aminotransferase 36 IU/L (17-59); BUN Creatinine Ratio 28.8 (6-22); Bilirubin Total 1.6 mg/dL (0.2-1.3); Blood Urea Nitrogen 21 mg/dL (9-20); Calcium 9.1 mg/dL (8.4-10.2); Carbon Dioxide 28 mmol/L (22-32); Chloride 107 mmol/L (98-107); Estimated Glomerular Filt Rate > 60 mL/min (>60); Globulin 3.3 g/dL (1.7-4.1); Glucose 91 mg/dL (80-110); HEMOLYSIS < 15 (0-50); Potassium 3.7 mmol/L (3.4-5.1); Sodium 139 mmol/L (137-145); Total Protein 7.5 g/dL (6.3-8.2)
[2023-10-23 16:20] LABS: TSH w/ Reflex to FT4 1.91 uIU/mL (0.47-4.68)
[2023-10-25 19:04] LABS: Free T4, Direct Thyroxine 1.57 ng/dL (0.78-2.19)
== END ==
PROVIDERS: Family Provider Internal Medicine; PCP Internal Medicine; Referring Provider Internal Medicine Cardiovascular Disease; Visit Provider Internal Medicine Cardiovascular Disease
DX: I48.0 Paroxysmal atrial fibrillation (principal)
CPT/HCPCS: 36415; 80053; 84439; 84443

== ENCOUNTER 2024-03-12 10:49 | Emergency (ER) | payer MEDICARE, SELFPAY ==
[2024-03-12 11:21] VITALS: BP 141/73; PULSE 55; RESP 14; TEMP 36.1; O2SAT 99; BMI 23.1
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
[2024-03-12 13:01] VITALS: BP 177/87; PULSE 57; O2SAT 98
== END 2024-03-12 13:01 | disposition home or self-care (01) ==
PROVIDERS: Emergency Provider Emergency Medicine; Family Provider Internal Medicine; PCP Internal Medicine
DX: R60.0 Localized edema (principal); G20.A1 Parkinson's disease without dyskinesia, without mention of fluctuations; Z79.01 Long term (current) use of anticoagulants
CPT/HCPCS: 93971; 99281; 99283

== ENCOUNTER → 2024-05-26 14:30 | Outpatient (CLI) | payer MEDICARE, SELFPAY ==
[2024-05-26 15:36] LABS: Alanine Aminotransferase 28 IU/L (<50); Albumin 4.1 g/dL (3.5-5.0); Albumin Globulin Ratio 1.4 (1.0-2.8); Alkaline Phosphatase 86 U/L (38-126); Aspartate Aminotransferase 33 IU/L (17-59); BUN Creatinine Ratio 25.6 (6-22); Bilirubin Total 1.5 mg/dL (0.2-1.3); Blood Urea Nitrogen 20 mg/dL (9-20); Calcium 9.6 mg/dL (8.4-10.2); Carbon Dioxide 28 mmol/L (22-32); Chloride 105 mmol/L (98-107); Estimated Glomerular Filt Rate > 60 mL/min (>60); Glucose 104 mg/dL (80-110); HEMOLYSIS < 15 (0-50); Potassium 4.4 mmol/L (3.4-5.1); Sodium 139 mmol/L (137-145); Total Protein 7.1 g/dL (6.3-8.2)
[2024-05-26 22:18] LABS: Free T4, Direct Thyroxine 1.47 ng/dL (0.78-2.19)
[2024-05-26 22:33] LABS: Thyroid Stimulating Hormone 1.38 uIU/mL (0.47-4.68)
== END ==
PROVIDERS: Family Provider Internal Medicine; PCP Internal Medicine; Referring Provider Internal Medicine Cardiovascular Disease; Visit Provider Internal Medicine Cardiovascular Disease
DX: I48.0 Paroxysmal atrial fibrillation (principal)
CPT/HCPCS: 36415; 80053; 84439; 84443